=== PATIENT | female | born 1950 | race Caucasian/White ===

== ENCOUNTER 2022-03-24 18:20 | Outpatient (REF) | payer MEDICARE, SELFPAY ==
[2022-03-24 14:41] LABS: Abs Immature Grans 0.13 10^3/uL (0.0-0.06); Absolute Basophil Count 0.07 10^3/uL (0.0-0.2); Absolute Eosinophil Count 0.56 10^3/uL (0.0-0.7); Absolute Lymphocyte Count 0.92 10^3/uL (1.2-3.4); Absolute Monocyte Count 0.85 10^3/uL (0.1-0.8); Absolute Neutrophil Count 6.42 10^3/uL (1.2-6.7); Basophils % 0.8; Eosinophils % 6.3; HCT 31.6 % (36.0-46.0); HGB 9.9 g/dL (11.2-15.7); Immature Grans % 1.5; Lymphocytes % 10.3; MCH 25.1 pg (27.0-33.0); MCHC 31.3 % (32.0-36.0); MCV 80 fL (80-95); MPV 11.4 fL (8.0-11.0); Monocytes % 9.5; Neutrophils % 71.6; Platelet Count 178 10^3/uL (130-400); RBC 3.94 10^6/uL (3.93-5.22); RDW 16.1 % (11.7-14.6); RDW-SD 47.2 fL; WBC 8.95 10^3/uL (4.4-10.8)
[2022-03-24 15:11] LABS: Iron 31 ug/dL (50-170); Total Iron Binding Capacity 249 ug/dL (250-450); Transferrin Sat 12 % (15-50)
[2022-03-24 15:25] LABS: Ferritin 187 ng/mL (8-252)
== END 2022-03-24 18:21 | disposition home or self-care (01) ==
LOC: NCHCN 18:20
PROVIDERS: Visit Provider Nurse Practitioner Family
DX: E78.5 Hyperlipidemia, unspecified (principal); J44.9 Chronic obstructive pulmonary disease, unspecified; D69.6 Thrombocytopenia, unspecified; D64.9 Anemia, unspecified; M81.0 Age-related osteoporosis without current pathological fracture
CPT/HCPCS: 82728; 83540; 83550; 85025

== ENCOUNTER → 2022-05-01 13:42 | Outpatient (CLI) | payer MEDICARE, MEDICAID, SELFPAY ==
--- NOTE | 2022-05-01 | DI.RAD_ITS ---
Exam(s) XR CHEST 2V PA LATERAL EXAM: XR CHEST 2V PA LATERAL CLINICAL HISTORY: COUGH-R05.8. TECHNIQUE: 2D digital imaging was performed. COMPARISON: No exams were available for comparison FINDINGS: 2 views: Mild cardiomegaly. Mediastinum is not widened. Mild increased lung markings but no infiltrates nor pleural effusions. No airspace pulmonary edema. No pneumothorax. IMPRESSION: No acute pulmonary findings.Heart size upper normal-minimally prominent DATA REPOSITORY: RADIATION DOSE DELIVERED:
== END ==
PROVIDERS: Visit Provider Physician Assistant Medical
DX: R05.8 Other specified cough (principal); I51.7 Cardiomegaly; R91.8 Other nonspecific abnormal finding of lung field
CPT/HCPCS: 71046

== ENCOUNTER 2022-05-01 18:19 | Outpatient (REF) | payer MEDICARE, MEDICAID, SELFPAY ==
[2022-05-03 10:56] LABS: COVID-19 RT-PCR UVMMC Result Negative (Negative)
== END 2022-05-01 18:20 | disposition home or self-care (01) ==
LOC: LBN 18:19
PROVIDERS: Visit Provider Physician Assistant Medical
DX: Z20.822 Contact with and (suspected) exposure to COVID-19 (principal); R05.8 Other specified cough
CPT/HCPCS: U0003

== ENCOUNTER 2022-09-03 01:16 | Outpatient (CLI) | payer MEDICARE, MEDICAID, SELFPAY ==
--- NOTE | 2022-09-03 | DI.DEXA_ITS ---
Exam(s) XR DEXA BONE DENSITY W/WO CLIVE EXAM: XR DEXA BONE DENSITY W/WO CLIVE CLINICAL HISTORY: OSTEPOROSIS, M81.0 TECHNIQUE: Routine DEXA evaluation of the lumbar spine, hip, or forearm. COMPARISON: No exams were available for comparison FINDINGS: Performed on a Hologic unit. Lateral image: No compression fracture evident. Lumbar Spine total T-score: 0.9 Hip total T-score:-1.5 Independent reading at the level of the femoral neck yields T-score of -2.4 Forearm total T-score: -0.2 IMPRESSION: Bone mineral density measures in the osteopenia range. Fracture risk is moderate. Note: Any spine fracture indicates 5x risk for subsequent spine fracture and 2x risk for subsequent h ip fracture. World Health Organization criteria for BMD interpretation classify patients: Normal...... T- Score at or above -1.0 Osteopenic... T- Score between -1.0 and -2.5 Osteoporosis... T-Score at or below -2.5
== END 2022-09-03 01:36 ==
LOC: DI 01:17
PROVIDERS: Visit Provider Nurse Practitioner Family
DX: Z13.820 Encounter for screening for osteoporosis (principal); M85.89 Other specified disorders of bone density and structure, multiple sites
CPT/HCPCS: 77080

== ENCOUNTER 2022-10-06 10:16 | Outpatient (REF) | payer MEDICARE, MEDICAID, SELFPAY ==
[2022-10-06 14:40] LABS: Abs Immature Grans 0.06 10^3/uL (0.0-0.06); Absolute Basophil Count 0.08 10^3/uL (0.0-0.2); Absolute Eosinophil Count 0.48 10^3/uL (0.0-0.7); Absolute Lymphocyte Count 0.76 10^3/uL (1.2-3.4); Absolute Monocyte Count 0.75 10^3/uL (0.1-0.8); Absolute Neutrophil Count 7.04 10^3/uL (1.2-6.7); Basophils % 0.9; Eosinophils % 5.2; HCT 32.8 % (36.0-46.0); HGB 10.1 g/dL (11.2-15.7); Immature Grans % 0.7; Lymphocytes % 8.3; MCH 25.2 pg (27.0-33.0); MCHC 30.8 % (32.0-36.0); MCV 82 fL (80-95); MPV 11.1 fL (8.0-11.0); Monocytes % 8.2; Neutrophils % 76.7; Platelet Count 178 10^3/uL (130-400); RBC 4.01 10^6/uL (3.93-5.22); RDW 17.1 % (11.7-14.6); WBC 9.17 10^3/uL (4.4-10.8)
[2022-10-06 15:04] LABS: Iron 32 ug/dL (50-170); Total Iron Binding Capacity 258 ug/dL (250-450); Transferrin Sat 12 % (15-50)
[2022-10-06 15:14] LABS: ALT 32 U/L (14-59); AST 22 U/L (15-37); Albumin 3.1 g/dL (3.4-5.0); Alkaline Phosphatase 99 U/L (46-116); Anion Gap 10.1 mmol/L (3-11); BUN 30 mg/dL (7-18); Bilirubin, Total 0.2 mg/dL (0.2-1.0); CO2 25.9 mmol/L (21.0-32.0); CREATININE 1.1 mg/dL (0.55-1.02); Calcium 9.1 mg/dL (8.5-10.1); Chloride 106 mmol/L (98-107); Estimated GFR 52.73 (mL/min/1.73m2); Ferritin 189 ng/mL (8-252); Glucose 121 mg/dL (74-106); Potassium 4.5 mmol/L (3.5-5.1); Sodium 142 mmol/L (136-145); Total Protein 7.3 g/dL (6.4-8.2)
[2022-10-06 15:26] LABS: Vitamin D 25 Total 70.3 ng/mL (30-100)
== END 2022-10-06 10:17 | disposition home or self-care (01) ==
LOC: NCHCN 10:16
PROVIDERS: PCP Nurse Practitioner Family; Visit Provider Nurse Practitioner Family
DX: D64.9 Anemia, unspecified (principal); F41.8 Other specified anxiety disorders; E78.5 Hyperlipidemia, unspecified; K21.9 Gastro-esophageal reflux disease without esophagitis; R25.1 Tremor, unspecified; M81.0 Age-related osteoporosis without current pathological fracture
CPT/HCPCS: 80053; 82306; 82728; 83540; 83550; 85025

== ENCOUNTER 2022-11-09 01:03 | Outpatient (CLI) | payer MEDICARE, MEDICAID, SELFPAY ==
--- NOTE | 2022-11-09 09:30 | DI.MAMMO_ITS ---
Exam(s) MAMMO SCREENING EXAM: MAMMO SCREENING CLINICAL HISTORY: SCREENING MAMMO FOR BREAST CANCER Z12.31. TECHNIQUE: Bilateral full field digital CC and MLO mammographic images were obtained with 3D tomosyn thesis and utilizing computer aided detection (CAD). COMPARISON: None. Patient is apparently not aware prior mammograms. FINDINGS: There are no concerning spiculated masses nor malignant appearing microcalcification groups. Benign secretory-type calcifications are noted in both breasts. There is no significant architectural distortion nor skin thickening-retraction. IMPRESSION: No radiographic evidence of malignancy. BI-RADS Category 2 - Benign Findings Breast Density - Category A - Almost entirely fatty Breast density Category C or D implies that the patient has dense breast tissue. Dense breast tissue can make it harder to find cancer on a mammogram. Dense breast tissue is also associated with an incr eased risk of breast cancer. This information about the result of the mammogram report was provided to the patient to raise their awareness. Use this report when you speak with the patient about their risks for breast cancer, which includes their family history. At that time, you may recommend additional screening tests (Ultrasoun d or MRI) as these tests may add significant information. A negative radiographic report should not delay biopsy if a dominant or clinically suspicious mass is present. Up to ten percent of cancers are not identified on mammography. A negative report may reinforce clinical impression. Adenosis and dense breasts may obscure an underlying neoplasm. False positive reports average 6 to 10%. Patient will receive a letter notifying them of these results.
== END 2022-11-09 01:23 ==
PROVIDERS: PCP Nurse Practitioner Family; Visit Provider Nurse Practitioner Family
DX: Z12.31 Encounter for screening mammogram for malignant neoplasm of breast (principal)
CPT/HCPCS: 77063; 77067

== ENCOUNTER 2022-11-27 17:14 | Emergency (ER) | payer MEDICARE, MEDICAID, SELFPAY ==
--- NOTE | 2022-11-27 17:15 | DI.RAD_ITS ---
Exam(s) XR KNEE RT 3V AP,LAT,JENNIFER EXAM: XR KNEE RT 3V AP,LAT,JENNIFER CLINICAL HISTORY: fall/trauma. TECHNIQUE: 2D digital imaging was performed. COMPARISON: No exams were available for comparison FINDINGS: 3 views No evidence of acute fracture or obvious joint effusion. No significant degenerative changes. Calci fication noted at the insertion site of the quadriceps tendon on the anterosuperior aspect of the pat masoud. IMPRESSION: No acute osseous findings. Also no joint effusion. DATA REPOSITORY: RADIATION DOSE DELIVERED:
--- NOTE | 2022-11-27 17:15 | DI.CT_ITS ---
Exam(s) CT HEAD CERVICAL SPINE WO EXAM: CT HEAD CERVICAL SPINE WO CLINICAL HISTORY: fall with head injury/neck pain. TECHNIQUE: Imaging Protocol: Axial computed tomography images with coronal and sagittal reformatted images were created and reviewed COMPARISON: No exams were available for comparison FINDINGS: BRAIN: There are no skull fractures. Mucosal thickening and fluid noted in both maxillary sinuses. Similar findings in the sphenoid sinuses and ethmoidal air cells. The frontal sinuses are not developed. M astoid air cells are clear. No fluid evident in the middle ear cavities. There is no evidence of intracranial hemorrhage, mass effect, or shift of midline structures. There are no extra-axial fluid collections. The ventricles are not enlarged or shifted and there is no blo od within the ventricular system nor within the basal cisterns. Mild bilateral periventricular hypodensity consistent with chronic small vessel disease. CERVICAL SPINE: There is no evidence of acute fracture nor listhesis. No significant prevertebral soft tissue swelli ng. There is prominent posterior bony ridging at C3-4 level with severe spinal canal stenosis at this lev el noted. Also cysts canal stenosis lower down in the cervical canal. Chronic degenerative disc disease, most prominent at C6-7 level. Multilevel mild facet degenerative changes. No facet malalignment. There is degenerative cystic change in the odontoid process but no fracture at this level. Calcification in the supraspinous ligament in the mid cervical level noted. IMPRESSION: No acute intracranial findings on this noninfused CT scan of the brain. Multilevel degenerative changes in the cervical spine. Severe spinal canal stenosis most evident at C3-4 level. In trauma setting suspect that this may be associated with possible new abnormal spinal cord injury and if clinically indicated follow-up cervical spine MRI can be performed for added sensi tivity/specificity. No evidence of acute cervical spine fracture, malalignment, nor acute compromise of the cervical spin al canal. RADIATION DOSE DELIVERED: 1,054.34mGy.cm Total DLP DATA REPOSITORY: All CT scans at this facility are submitted to the National Radiology Data Registry (NRDR) Dose Index Registry (DIR) with the [employer] ([employer]). RADIATION OPTIMIZATION: All CT scans at this facility use at least one of these dose optimization te chniques: automated exposure control; mA and/or kV adjustment per patient size (includes targeted exa ms where dose is matched to clinical indication); or iterative reconstruction.
--- NOTE | 2022-11-27 17:15 | DI.RAD_ITS ---
Exam(s) XR WRIST RT COMPLETE EXAM: XR WRIST RT COMPLETE CLINICAL HISTORY: fall/trauma. TECHNIQUE: 2D digital imaging was performed. COMPARISON: No exams were available for comparison FINDINGS: 3 views No evidence of acute fracture nor dislocation. No significant ulnar variance. No significant degene rative changes. No erosions. Scapholunate distance normal. IMPRESSION: No acute osseous findings. DATA REPOSITORY: RADIATION DOSE DELIVERED:
[2022-11-27 17:17] VITALS: BP 166/89; PULSE 103; RESP 22; O2SAT 91
--- NOTE | 2022-11-27 17:18 | ED.GENADUL_ITS ---
Discharge Plan Disposition Patient Disposition: Home Discharge Details Clinical Impression: Fall, Facial contusion, Multiple lung nodules on CT Primary Care Provider: Misti Javier ED Provider: Neil Hernandez Chaseley Meds and New Rx's Prescriptions: No Action atorvastatin 40 mg tablet 40 mg PO DAILY melatonin 10 mg capsule 10 mg PO HS PRN sennosides [Natural Senna Laxative] 8.6 mg tablet 8.6 mg PO QHS trazodone 50 mg tablet 50 mg PO QHS PRN sertraline 100 mg tablet 100 mg PO DAILY sertraline 50 mg tablet 50 mg PO DAILY multivitamin Tablet 1 tab PO DAILY montelukast 10 mg tablet 10 mg PO DAILY ferrous sulfate 325 mg (65 mg iron) tablet 325 mg PO Q OTHER DAY donepezil [Aricept] 10 mg tablet 10 mg PO DAILY docusate sodium 100 mg capsule 200 mg PO QHS cholecalciferol (vitamin D3) 25 mcg (1,000 unit) capsule 25 mcg PO DAILY budesonide-formoterol [Symbicort] 160-4.5 mcg/actuation HFA aerosol inhaler 1 puff inhalation BID albuterol sulfate 90 mcg/actuation HFA aerosol inhaler 2 puff inhalation Q4H PRN Discharge Instructions Instructions: Contusion in Adults (ED) Additional Instructions: Doretha was seen after a fall out of bed as well as a trip and fall in our parking lot. CT scan of the head reveals no bleed or skull fracture. CT of the cervical spine reveals no fracture. She does have significant arthritic change and spondylosis. She is also noted to have right lung nodules multiple in number and is largest 14 mm. This can be evaluated as outpatient by primary care. X-rays of her right wrist, right shoulder, right knee are all negative. She may use Tylenol for pain. Ice over her bruise to help with pain and swelling. Return to ED for any significant neurologic change, persistent vomiting, other concerns. Medical Decision Making Patient presenting from care home after she fell out of bed and struck her head. She has bruise/contusion over her right eye. She is moving her neck without difficulty but complains of pain when posterior spine is palpated. Complains of pain with palpation of the right wrist and movement of the right knee. Will obtain head and cervical spine CT, x-ray wrist and knee. Patient began to complain of shoulder pain on the right as well. X-ray of this was added on. CT head negative. CT cervical spine without fracture but she does have significant spondylosis with canal stenosis and some cord compression at C3-C4 as well as foraminal narrowing. Also noted to have multiple noncalcified nodular parenchymal densities measuring up to 14 mm in size in the right lung apex. Will need follow-up dedicated CT chest if family so inclined to evaluate for possible malignancy. X-ray of the wrist, shoulder, knee are all negative per my read and radiology preliminary read. Patient will be discharged back to her care home with her artisan plasterer. They will need to reach out to family to discuss possible CT chest as outpatient. Patient can follow-up with primary care. May use Tylenol as needed for pain. Ice on and off to her bruise over the right eye. Return precaution provided. HPI General Mode of arrival: wheelchair . Date/Time Provider Initiated Documentation: 11/27/22 17:18 . Information obtained by: patient and family (caregiver from care home) . HPI Narrative: Patient presents to ED from care home status post fall out of bed. She hit her head. Unclear whether there was loss of consciousness or not. She had 1 episode of emesis which concerned staff so she was sent in for evaluation. She was walking into the ED with her walker and a artisan plasterer when she tripped and fell in the parking lot. Did not strike her head then. Is complaining of wrist and knee pain from that fall. She denies having any neck pain, back pain, chest pain, hip pain, shortness of breath. She is noted to have a cough which she states is always present. Related Data Home Medications Medication Instructions Recorded Confirmed albuterol sulfate 90 mcg/actuation 2 puff inhalation Q4H PRN 07/21/22 11/27/22 aerosol inhaler budesonide-formoterol HFA 160 1 puff inhalation BID 07/21/22 11/27/22 mcg-4.5 mcg/actuation aerosol inhaler (Symbicort) cholecalciferol (vitamin D3) 25 25 mcg PO DAILY 07/21/22 mcg (1,000 unit) capsule docusate sodium 100 mg capsule 200 mg PO QHS 07/21/22 donepezil 10 mg tablet (Aricept) 10 mg PO DAILY 07/21/22 ferrous sulfate 325 mg (65 mg 325 mg PO Q OTHER DAY 07/21/22 iron) tablet montelukast 10 mg tablet 10 mg PO DAILY 07/21/22 multivitamin 1 tab PO DAILY 07/21/22 11/27/22 sertraline 100 mg tablet 100 mg PO DAILY 07/21/22 11/27/22 sertraline 50 mg tablet 50 mg PO DAILY 07/21/22 11/27/22 trazodone 50 mg tablet 50 mg PO QHS PRN 07/21/22 11/27/22 atorvastatin 40 mg tablet 40 mg PO DAILY 10/08/22 11/27/22 melatonin 10 mg capsule 10 mg PO HS PRN 10/08/22 11/27/22 sennosides 8.6 mg tablet (Natural 8.6 mg PO QHS 10/08/22 Senna Laxative) Allergies Allergy/AdvReac Type Severity Reaction Status Date / Time cephalexin Allergy Severe Verified 11/27/22 17:54 tetanus toxoid, adsorbed Allergy Severe Verified 11/27/22 17:54 diclofenac Allergy Intermediate Verified 11/27/22 17:54 shellfish derived Allergy Intermediate Verified 11/27/22 17:54 Sulfa (Sulfonamide Allergy Intermediate Verified 11/27/22 17:54 Antibiotics) acetaminophen Allergy Mild Verified 11/27/22 17:54 adhesive tape Allergy Mild Verified 11/27/22 17:54 Review of Systems Narrative: Per HPI PFSH All Active Problems (Updated 11/27/22 @ 19:49 by Neil Hernandez MD) Fall (Acute) Facial contusion (Acute) Multiple lung nodules on CT (Acute) Low back pain (Acute) Knee pain, bilateral (Acute) Thrombocytopenia (Chronic) COPD (chronic obstructive pulmonary disease) (Chronic) GERD (gastroesophageal reflux disease) (Chronic) Osteoporosis (Chronic) Memory deficit (Acute) Tremor (Acute) Anemia (Chronic) Urinary incontinence (Acute) Screening for colon cancer (Acute) Medical History Anxiety Asthma, chronic Hx of pancreatitis Hyperlipidemia Memory loss MSSA bacteremia Sciatica Social History Smoking/Tobacco Use Status: Never Smoking risk assessment performed?: Yes Alcohol Intake: never Substance use type: does not use Do you feel safe at home: Yes Do you feel safe in your relationship?: Yes Additional Social history: pt lives in care home where she is cared for by caregivers., dementia at baseline. Exam Narrative Exam Narrative: Const: WDWN elderly female in NAD. HEENT: NC/AT. Bruising/hematoma right eye without orbital tenderness. Eyes: EOMI Neck: Supple. Trachea midline. Some tenderness to posterior midline. Lungs: Normal respiratory effort. Lungs with upper air way noise. Chest wall nontender Cor: RRR without murmur/gallop. Good radial pulses. GI: Soft. NT/ND. No guarding or rebound. Back: No spine tenderness. Neuro: A+O x 2. Normal speech, mentation. Cranial nerves II - XII grossly intact. No gross motor or sensory deficit. Ext: No C/C/E. Tender to right wrist without deformity. Decrease ROM right knee without deformity. Skin: Warm and dry without laceration.
--- NOTE | 2022-11-27 18:30 | DI.RAD_ITS ---
Exam(s) XR SHOULDER RT COMPLETE 2+V EXAM: XR SHOULDER RT COMPLETE 2+V CLINICAL HISTORY: trauma. TECHNIQUE: 2D digital imaging was performed. COMPARISON: No exams were available for comparison FINDINGS: Four views No evidence of acute fracture or dislocation. There are no soft tissue calcifications in the subacro mial space. However, there is a bony excrescence at the level of the greater tuberosity on the later al aspect of the humeral head. In addition, there is osteophytic ridge on the undersurface of the ac romion. Probably causing an element of impingement. AC joint itself exhibits mild degenerative aguilar ges. Ipsilateral visualized clavicle appears unremarkable. IMPRESSION: As above. DATA REPOSITORY: RADIATION DOSE DELIVERED:
--- NOTE | 2022-11-27 18:39 | DI.VRAD_ITS ---
PROCEDURE INFORMATION: Exam: XR Right Wrist Exam date and time: 11/27/2022 18:29 Age: 72 years old Clinical indication: Injury or trauma; Fall; Blunt trauma (contusions or hematomas); Wrist; Right TECHNIQUE: Imaging protocol: Radiologic exam of the right wrist. Views: 3 or more views. COMPARISON: No relevant prior studies available. FINDINGS: Bones/joints: The bones are demineralized. Scattered [id number] degenerative changes. No acute fracture or subluxation. Soft tissues: Soft tissue swelling dorsally. IMPRESSION: No acute bony pathology. Dictated and Authenticated by: Tracy Emery MD. Ordering:ROOSEVELT Trejo MD
--- NOTE | 2022-11-27 18:44 | DI.VRAD_ITS ---
PROCEDURE INFORMATION: Exam: CT Head Without Contrast Exam date and time: 11/27/2022 6:20 PM Age: 72 years old Clinical indication: Injury or trauma; Blunt trauma (contusions or hematomas); Consciousness not specified; Injury details: Fall/trauma TECHNIQUE: Imaging protocol: Computed tomography of the head without contrast. COMPARISON: No relevant prior studies available. FINDINGS: Brain: Slight prominence of cerebral sulci reflects mild cerebral atrophy. A few poorly marginated hypodensities seen throughout the deep and periventricular white matter of both cerebral hemispheres are consistent with underlying microvascular ischemic changes. Brainstem and cerebellum are unremarkable and there is no evidence of acute transcortical infarction or recent intracranial hemorrhage. Cerebral ventricles: Ventricular and cisternal spaces are normal in size and configuration and there is no midline shift or hydrocephalus. Paranasal sinuses: Bilateral sphenoethmoid and maxillary sinus mucosal disease is noted. Mastoid air cells: Grossly clear bilaterally. Bones/joints: Bony calvarium and skull base are intact and no acute fractures are detected. Soft tissues: Unremarkable. IMPRESSION: Cerebral atrophy and probable microvascular ischemic changes with no evidence of acute transcortical infarction, recent hemorrhage or hydrocephalus. No acute intracranial process is detected. PROCEDURE INFORMATION: Exam: CT Cervical Spine Without Contrast Exam date and time: 11/27/2022 6:20 PM Age: 72 years old Clinical indication: Injury or trauma; Blunt trauma (contusions or hematomas); Consciousness not specified; Injury details: Fall/trauma TECHNIQUE: Imaging protocol: Computed tomography of the cervical spine without contrast. COMPARISON: CR XR CHEST 2V PA LATERAL 05/01/2022 11:58 AM FINDINGS: Bones/joints: There is arthrosis involving the anterior atlantodental interval with loss of joint space and marginal osteophyte formation and the odontoid process is grossly intact. There are grade 1 anterolisthesis of C2 upon C3, C3 upon C4 and C4 upon C5 and there is gross preservation of vertebral body height throughout cervical levels with no vertebral body fractures or other significant subluxations detected. Changes of facet arthropathy are most advanced on the right at C2-C3 with no acute fractures detected involving the posterior elements of the cervical spine. Discs/Spinal canal/Neural foramina: Chronic posterior osteocartilaginous ridging with calcification/ossification is most significant at C3-C4 resulting in canal stenosis and suspected cord compression which could be better evaluated with MRI. Uncovertebral and facet changes produce multilevel foraminal distortions/narrowings. Lungs: No pneumothorax or consolidation detected at the lung apices. Multiple noncalcified nodular parenchymal densities measuring up to 14 mm in size are seen near the right lung apex. Soft tissues: Unremarkable. IMPRESSION: 1. Cervical spondylosis with canal stenosis and cord compression identified at C3-C4 and multilevel foraminal narrowings also evident as above. No acute cervical fractures are detected. 2. Multiple noncalcified nodular parenchymal densities measuring up to 14 mm in size are seen near the right lung apex with both infectious and neoplastic etiologies of concern. Correlation with clinical data requested. Dictated and Authenticated by: Anjel Perez MD. Ordering:ROOSEVELT Trejo MD
--- NOTE | 2022-11-27 18:53 | DI.VRAD_ITS ---
PROCEDURE INFORMATION: Exam: XR Right Knee Exam date and time: 11/27/2022 18:31 Age: 72 years old Clinical indication: Injury or trauma; Fall; Blunt trauma; Knee; Right TECHNIQUE: Imaging protocol: Radiologic exam of the right knee. Views: 3 views. COMPARISON: No relevant prior studies available. FINDINGS: Bones/joints: Minimal chronic degenerative changes for age. No acute fracture or subluxation. Soft tissues: Benign appearing distal quadriceps enthesophyte. No significant joint effusion. IMPRESSION: No acute bony pathology. Dictated and Authenticated by: Tracy Emery MD. Ordering:ROOSEVELT Trejo MD
--- NOTE | 2022-11-27 18:55 | DI.VRAD_ITS ---
PROCEDURE INFORMATION: Exam: XR Right Shoulder Exam date and time: 11/27/2022 18:45 Age: 72 years old Clinical indication: Injury or trauma; Fall; Blunt trauma (contusions or hematomas); Shoulder; Right TECHNIQUE: Imaging protocol: Radiologic exam of the right shoulder. Views: 2 or more views. COMPARISON: CT HEAD CERVICAL SPINE WO 11/27/2022 18:20 FINDINGS: Bones/joints: The bones are demineralized. Chronic degenerative changes in the shoulder are moderate. No acute fracture or subluxation. Soft tissues: Normal. IMPRESSION: No acute bony pathology. Dictated and Authenticated by: Tracy Emery MD. Ordering:ROOSEVELT Trejo MD
[2022-11-27 19:00] VITALS: BP 145/57; PULSE 90; RESP 20; O2SAT 92
[2022-11-27 19:15] VITALS: BP 150/55; PULSE 92; RESP 20; O2SAT 92
[2022-11-27 19:30] VITALS: BP 149/56; PULSE 94; RESP 20; O2SAT 92
[2022-11-27 20:25] VITALS: BP 148/55; PULSE 92; RESP 24; TEMP 36.8; O2SAT 94
== END 2022-11-27 20:27 | disposition home or self-care (01) ==
PROVIDERS: Emergency Provider Emergency Medicine; PCP Nurse Practitioner Family
DX: S00.83XA Contusion of other part of head, initial encounter (principal); W06.XXXA Fall from bed, initial encounter; R91.8 Other nonspecific abnormal finding of lung field
CPT/HCPCS: 73562; 99284; 70450; 72125; 73030; 73110

== ENCOUNTER 2022-11-30 12:51 | Inpatient (IN) | payer MEDICARE, MEDICAID, SELFPAY ==
[2022-11-30] VITALS (14 sets, daily range): BP systolic 94–129; BP diastolic 24–71; PULSE 70–91; RESP 4–28; TEMP 36.3–37; O2SAT 92–100
--- NOTE | 2022-11-30 13:30 | DI.RAD_ITS ---
Exam(s) XR CHEST 2V PA LATERAL EXAM: XR CHEST 2V PA LATERAL CLINICAL HISTORY: Shortness of breath TECHNIQUE: 2D digital imaging was performed. COMPARISON: CR XR CHEST 2V PA LATERAL from 05/01/2022 CR,XR XR SHOULDER RT COMPLETE 2+V from 11/27/2022 FINDINGS: HEART: Normal size. Aorta: Not dilated. PULMONARY VASCULATURE: Normal. LUNGS: Underlying fibrotic changes. Superimposed bilateral patchy infiltrates. PLEURAL SPACE: No pleural effusion or pneumothorax. BONE:Degenerative changes in the spine. No compression fractures. IMPRESSION: Patchy bilateral infiltrates. DATA REPOSITORY: RADIATION DOSE DELIVERED:
--- NOTE | 2022-11-30 13:31 | W.ED.GENAD ---
Discharge Plan Disposition Patient Disposition: Admit to [facility] Discharge Details Clinical Impression: Acute respiratory failure with hypoxia, BETH (acute kidney injury), Community acquired pneumonia Admit Date/Time: 11/30/22 15:47 Admit Provider: Georgina Galindo Attending Provider: Georgina Galindo Primary Care Provider: Misti Javier ED Provider: Shorty Chan Medical Decision Making This is a hypoxic and hypotensive 72-year-old female 3 days status post falling out of bed now with productive cough and worsening shortness of breath complicated by acute respiratory failure requiring 2 L supplemental oxygen for which patient will require hospitalization. Given hypotension and hypoxia I am suspicious for sepsis so we will obtain lactate, 2 sets of blood cultures, and treat empirically with ciprofloxacin given cephalexin allergy and vancomycin. We will obtain chest x-ray. Breath sounds equal so not concern for pneumothorax. Based on mechanism of injury I am not concerned for significant thoracoabdominal trauma so I do not feel the patient requires axial imaging. No significant wheezes but she does carry history of COPD. Will defer nebulization at this point. If patient has infiltrate will consider adding on metronidazole to cover for aspiration pneumonia. Patient does have tenderness to her right shoulder and her right knee however these have been imaged during her next visit and her images were negative. Given no recurrent trauma no indication for repeat imaging. 2:50 PM Venous blood gas lacks hypercarbia & acidemia. Reassuring normal lactate. 3:20 PM Base metabolic panel significant for BETH with mild anion gap and mild hypokalemia. Mildly elevated glucose but not consistent with DKA. Chest x-ray read as patchy infiltrates. Presentation concerning for community-acquired pneumonia. I am not suspicious for rib fractures so will defer CT scan. Negative troponin. CBC notable for marked leukocytosis. No thrombocytopenia. Baseline microcytic anemia appears similar to prior. Given signs of dehydration patient will possibly benefit from transfusion if her hemoglobin downtrends with rehydration. Mildly elevated CK not consistent with rhabdomyolysis. We will swab for respiratory viral panel. 3:30 PM I spoke with Dr. Galindo from the hospitalist team who graciously accepted the patient for hospitalization. She requested add on procalcitonin. I also ordered the patient for aztreonam. Patient confirms full code. Given her normal lactate I feel that her transient hypotension in the ED resulted from her BETH. Her elevated BUN:Creatine is most consistent with a pre-renal etiology of her BETH. This is mostly likely secondary to dehydration given her improved BP following two, 500 cc fluid boluses. Chronic conditions affecting the care of the patient: Lives in SNF History obtained from an outside historian: Patient's care provider at [facility] External record review: N/A Diagnostic interpretations performed by me: [Per my independent interpretation chest x-ray shows:] Infiltrates bilaterally [Per my independent interpretation EKG shows:] N/A Medications: Broad-spectrum antibiotics Social determinants of health affecting disposition: Frailty Management discussed with: Hospitalist Treatment/interventions considered: Discharge however the patient requires supplemental oxygen Response to therapies provided: Improved on supplemental oxygen HPI General Date/Time Provider Initiated Documentation: 11/30/22 13:31. HPI Narrative: This is a 72-year-old female arriving from a [facility] facility in the setting of worsening shortness of breath and a productive cough. Patient fell 3 days ago. Prior to her fall she has had a mild productive cough. This gradually worsened over the weekend following her fall. She is not on supplemental oxygen at baseline but currently requires 2 L of nasal cannula oxygen secondary to a room air oxygen saturation reported by her [facility] facility at 80%. She has not had any fevers. She has not had any vomiting. She has not had any subsequent falls. She had radiographs obtained at her index visit 3 days ago of her right shoulder, right wrist and right knee which were all negative for any acute osseous abnormalities. She has a history of COPD. Related Data Home Medications Medication Instructions Recorded Confirmed albuterol sulfate 90 mcg/actuation 2 puff inhalation Q4H PRN 07/21/22 11/30/22 aerosol inhaler budesonide-formoterol HFA 160 1 puff inhalation BID 07/21/22 11/30/22 mcg-4.5 mcg/actuation aerosol inhaler (Symbicort) cholecalciferol (vitamin D3) 25 25 mcg PO DAILY 07/21/22 11/30/22 mcg (1,000 unit) capsule docusate sodium 100 mg capsule 200 mg PO QHS 07/21/22 11/30/22 donepezil 10 mg tablet (Aricept) 10 mg PO DAILY 07/21/22 11/30/22 ferrous sulfate 325 mg (65 mg 325 mg PO Q OTHER DAY 07/21/22 11/30/22 iron) tablet montelukast 10 mg tablet 10 mg PO DAILY 07/21/22 11/30/22 multivitamin 1 tab PO DAILY 07/21/22 11/30/22 sertraline 100 mg tablet 100 mg PO DAILY 07/21/22 11/30/22 sertraline 50 mg tablet 50 mg PO DAILY 07/21/22 11/30/22 trazodone 50 mg tablet 50 mg PO QHS PRN 07/21/22 11/30/22 atorvastatin 40 mg tablet 40 mg PO DAILY 10/08/22 11/30/22 melatonin 10 mg capsule 10 mg PO HS PRN 10/08/22 11/30/22 sennosides 8.6 mg tablet (Natural 8.6 mg PO QHS 10/08/22 11/30/22 Senna Laxative) Allergies Allergy/AdvReac Type Severity Reaction Status Date / Time cephalexin Allergy Severe Verified 11/27/22 17:54 tetanus toxoid, adsorbed Allergy Severe Verified 11/27/22 17:54 diclofenac Allergy Intermediate Verified 11/27/22 17:54 shellfish derived Allergy Intermediate Verified 11/27/22 17:54 Sulfa (Sulfonamide Allergy Intermediate Verified 11/27/22 17:54 Antibiotics) acetaminophen Allergy Mild Verified 11/27/22 17:54 adhesive tape Allergy Mild Verified 11/27/22 17:54 General Stated Complaint: RespSymp FREDA: 3 PFSH All Active Problems (Updated 11/30/22 @ 17:42 by Zuleyma Bryant NP) Discharge planning issues (Acute) DVT prophylaxis (Acute) Hyperlipidemia (Chronic) Fall (Acute) Facial contusion (Acute) Multiple lung nodules on CT (Acute) Acute respiratory failure with hypoxia (Acute) BETH (acute kidney injury) (Acute) Community acquired pneumonia (Acute) Low back pain (Acute) Knee pain, bilateral (Acute) Thrombocytopenia (Chronic) COPD (chronic obstructive pulmonary disease) (Chronic) GERD (gastroesophageal reflux disease) (Chronic) Osteoporosis (Chronic) Memory deficit (Chronic) Tremor (Acute) Anemia (Chronic) Urinary incontinence (Chronic) Screening for colon cancer (Acute) Medical History Anxiety Asthma, chronic Hx of pancreatitis Hyperlipidemia Memory loss MSSA bacteremia Sciatica Social History Smoking/Tobacco Use Status: Never Smoking risk assessment performed?: Yes Alcohol Intake: never Substance use type: does not use Do you feel safe at home: Yes Do you feel safe in your relationship?: Yes Additional Social history: pt lives in custodial where she is cared for by caregivers., dementia at baseline. Exam Narrative Exam Narrative: General: Chronically ill-appearing in no acute distress speaking in complete sentences. Wearing 2 L nasal cannula with intermittent cough. Head: Normocephalic, atraumatic. Eye: Pupils equal, round reactive to light. Extraocular eye movements intact. No conjunctival injection. No scleral icterus. Ear, nose, mouth, throat: Grossly normal inspection. Normal voice, handling secretions normally. Neck: Trachea midline. Cardiovascular: Well-perfused distal extremities. Regular rate and rhythm Respiratory: Nonlabored respiration. Coarse breath sounds bilaterally. Gastrointestinal: Nondistended abdomen. Soft nontender Musculoskeletal: Right-sided shoulder tenderness. No obvious deformities. No lacerations. Patient is able to touch right hand to contralateral shoulder. Right knee with tenderness. Patient is able to passively range her right knee. Pelvis stable to anterior posterior compression. No left upper nor lower extremity tenderness. Skin: Normal for age and race, grossly normal temperature and turgor. No acute rash. Neurologic: Alert and appropriate, no apparent acute deficits. Psychiatric: Mood and manner are appropriate. Grooming and personal hygiene are appropriate. Course Vital Signs Vital signs: Vital Signs Pulse 86 11/30/22 12:55 Respiratory Rate 18 11/30/22 12:55 Blood Pressure 97/44 L 11/30/22 12:55 Pulse Oximetry 92 11/30/22 12:55 Temperature Source Oral 11/30/22 12:55 Pulse 86 11/30/22 12:55 Respiratory Rate 18 11/30/22 12:55 Respiratory Effort Short of Breath, Incrsd Work of Breathing 11/30/22 13:21 Respiratory Depth Normal 11/30/22 13:21 Blood Pressure 97/44 L 11/30/22 12:55 Blood Pressure Position Sitting 11/30/22 12:55 Pulse Oximetry 92 11/30/22 12:55 Oxygen Delivery Method Room Air 11/30/22 12:55 Oxygen Flow Rate 0 11/30/22 12:55 Critical Care Time Critical Care Time Critical Care Time: Yes Total Critical Care Time: 30 Attestation: in the setting of acute respiratory failure with hypoxia I completed critical care on this patient interpreting her blood gas, CXR and ECG.
[2022-11-30 14:34] LABS: BE (Venous) -5 mmol/L (-2-3); HCO3 (Venous) 20 mmol/L (23-28); O2 Sat (Venous) 65 %; TCO2 (Venous) 19 mmol/L (24-29); pCO2 (Venous) 36 mmHg (41-51); pH (Venous) 7.36 (7.31-7.41); pO2 (Venous) 35 mmHg
[2022-11-30 14:35] LABS: Abs Immature Grans 1.13 10^3/uL (0.0-0.06); Absolute Basophil Count 0.06 10^3/uL (0.0-0.2); Absolute Monocyte Count 1.26 10^3/uL (0.1-0.8); Basophils % 0.3; HCT 29.6 % (36.0-46.0); HGB 9.5 g/dL (11.2-15.7); Immature Grans % 5.7; Lymphocytes % 1.9; MCH 24.8 pg (27.0-33.0); MCHC 32.1 % (32.0-36.0); MCV 77 fL (80-95); MPV 10.4 fL (8.0-11.0); Monocytes % 6.4; Neutrophils % 85.7; Nucleated RBC 0.1 % (0.0-0.3); Platelet Count 142 10^3/uL (130-400); RBC 3.83 10^6/uL (3.93-5.22); RDW-SD 45.3 fL; WBC 19.72 10^3/uL (4.4-10.8)
[2022-11-30 14:36] LABS: Lactate 0.9 mmol/L (0.6-1.4)
[2022-11-30 14:38] LABS: Absolute Lymphocyte Count 0.37 10^3/uL (1.2-3.4)
[2022-11-30 14:54] LABS: Anion Gap 12.6 mmol/L (3-11); BUN 50 mg/dL (7-18); CO2 21.4 mmol/L (21.0-32.0); CREATININE 1.9 mg/dL (0.55-1.02); Calcium 8.9 mg/dL (8.5-10.1); Chloride 104 mmol/L (98-107); Estimated GFR 27.37 (mL/min/1.73m2); Glucose 126 mg/dL (74-106); Potassium 3.4 mmol/L (3.5-5.1); Sodium 138 mmol/L (136-145); Troponin I < 50 ng/L (<or=60)
[2022-11-30 14:59] LABS: Diff Comment Diff Reviewed; RBC Morphology Normal
[2022-11-30 15:08] LABS: Creatine Kinase 222 U/L (26-192)
[2022-11-30] MEDS: CIPROFLOXACIN 400 MG/200 ML BAG 200 MG IVPB (15:17)
[2022-11-30] MEDS: Normal Saline 500 ML IV (15:35)
--- NOTE | 2022-11-30 16:12 | HPE_ITS ---
Date of service: 11/30/22 Time of Service: 16:12 Assessment and Plan Assessment and plan (1) Acute respiratory failure with hypoxia: Status: Acute Assessment and plan: 2 days of increasing shortness of breath and productive cough Emperic abx, Vancomycin, Levofloxacin BC x 2, Sputum, urine legionella/strep, Mycoplasma, MRSA, all pending IS Acapella (2) BETH (acute kidney injury): Status: Acute Assessment and plan: BUN 50 Creatinine 1.9; slighlty up from baseline (3) Community acquired pneumonia: Status: Acute Assessment and plan: 2 day hx of cough, CXR shows bilateral patchy infiltrates Emperic abx, Vancomycin, Levofloxacin BC x 2, Sputum, urine legionella/strep, Mycoplasma, MRSA, all pending (4) COPD (chronic obstructive pulmonary disease): Status: Chronic Assessment and plan: CXR: HEART: Normal size.? Aorta: Not dilated. PULMONARY VASCULATURE: Normal. LUNGS: Underlying fibrotic changes.? Superimposed bilateral patchy infiltrates. PLEURAL SPACE: No pleural effusion or pneumothorax. BONE:Degenerative changes in the spine.? No compression fractures. Albuterol Duo neb Continue Budesonide/Formoterol Fumarate Prednisone 40 mg daily (5) Memory deficit: Status: Chronic Assessment and plan: Continue Donepezil (6) Anemia: Status: Chronic Assessment and plan: Chronic anemia, H&H ~ baseline 9.5/29.6 will monitor, consider hemodilution after IVF in ED and IV abx (7) Urinary incontinence: Status: Chronic Assessment and plan: Frequent monitoring for wet brief, good hygiene, frequent position changes; consider indwelling catheter if skin becomes a concern (8) Hyperlipidemia: Status: Chronic Assessment and plan: Continue Atorvastatin (9) DVT prophylaxis: Status: Acute Assessment and plan: Enoxaparin (10) Discharge planning issues: Status: Acute Assessment and plan: [facility] History of Present Illness History of Present Illness Chief Complaint: Shortness of breath with productive cough Narrative: This is a 72-year-old female arriving to the [facility] ED [facility], with a past medical history of Dementia, multiple lung nodules, thrombocytopenia, COPD, GERD, osteoporosis, anemia and urinary incontinence (history obtained by patient's care provider) in the setting of worsening shortness of breath and a productive cough.? Patient had fallen 3 days ago.? Prior to her fall she has had a mild productive cough.? This is worsened over the weekend.? She is not on supplemental oxygen at baseline but currently requir es 2 L of nasal cannula oxygen secondary to a room air oxygen saturation reported by her [facility] facility at 80%.? She has not had any fevers.? She has not had any vomiting.? She has not had any subsequent falls.? She had radiographs obtained at her index visit on November 27 of her right shoulder wrist and knee which were all negative for any acute osseous abnormalities. In the ED she was hypoxic and hypotensive with a productive cough Lactate, 2 sets of blood cultures, BMP, CBC and procalcitonin were done. Base metabolic panel significant for BETH with mild anion gap and mild hypokalemia.? Mildly elevated glucose but not consistent with DKA.? Chest x-ray read as patchy infiltrates.? Presentation concerning for community-acquired pneumonia.? I am not suspicious for rib fractures so will defer CT scan.? Negative troponin.? CBC notable for marked leukocytosis.? No thrombocytopenia.? Baseline microcytic anemia appears similar to prior.? Given signs of dehydration patient will possibly benefit from transfusion if her hemoglobin downtrends with rehydration.? Mildly elevated CK not consistent with rhabdomyolysis.? Procalcitonin 1.9. Respiratory viral panel negative. She received emperic Vancomycin, Aztreonam. and Cipro; she is allergic to cephalexin. ?Base metabolic panel significant for BETH with mild anion gap and mild hypokalemia.? Mildly elevated glucose but not consistent with DKA.? Chest x-ray read as patchy infiltrates.? Presentation concerning for community-acquired pneumonia.? Negative troponin.? CBC notable for marked leukocytosis.? No thrombocytopenia.? Baseline microcytic anemia appears similar to prior.? Mildly elevated CK not consistent with rhabdomyolysis.?She is being admitted to the medical floor for continued oxygen, IV antibiotics and evaluation. Review of Systems All systems reviewed & are unremarkable except as noted in HPI and below PFSH All Active Problems (Updated 11/30/22 @ 17:42 by Zuleyma Bryant NP) Discharge planning issues (Acute) DVT prophylaxis (Acute) Hyperlipidemia (Chronic) Fall (Acute) Facial contusion (Acute) Multiple lung nodules on CT (Acute) Acute respiratory failure with hypoxia (Acute) BETH (acute kidney injury) (Acute) Community acquired pneumonia (Acute) Low back pain (Acute) Knee pain, bilateral (Acute) Thrombocytopenia (Chronic) COPD (chronic obstructive pulmonary disease) (Chronic) GERD (gastroesophageal reflux disease) (Chronic) Osteoporosis (Chronic) Memory deficit (Chronic) Tremor (Acute) Anemia (Chronic) Urinary incontinence (Chronic) Screening for colon cancer (Acute) Medical History Anxiety Asthma, chronic Hx of pancreatitis Hyperlipidemia Memory loss MSSA bacteremia Sciatica Social History Smoking/Tobacco Use Status: Never Smoking risk assessment performed?: Yes Alcohol Intake: never Substance use type: does not use Do you feel safe at home: Yes Do you feel safe in your relationship?: Yes Additional Social history: [facility] where she is cared for by caregivers., dementia at baseline. Meds Allergies and Home Medications Allergies Allergy/AdvReac Type Severity Reaction Status Date / Time cephalexin Allergy Severe Verified 11/27/22 17:54 tetanus toxoid, adsorbed Allergy Severe Verified 11/27/22 17:54 diclofenac Allergy Intermediate Verified 11/27/22 17:54 shellfish derived Allergy Intermediate Verified 11/27/22 17:54 Sulfa (Sulfonamide Allergy Intermediate Verified 11/27/22 17:54 Antibiotics) acetaminophen Allergy Mild Verified 11/27/22 17:54 adhesive tape Allergy Mild Verified 11/27/22 17:54 Home Medications Medication Instructions Recorded Confirmed Type albuterol sulfate 90 mcg/actuation 2 puff inhalation Q4H PRN 07/21/22 11/30/22 History aerosol inhaler budesonide-formoterol HFA 160 1 puff inhalation BID 07/21/22 11/30/22 History mcg-4.5 mcg/actuation aerosol inhaler (Symbicort) cholecalciferol (vitamin D3) 25 25 mcg PO DAILY 07/21/22 11/30/22 History mcg (1,000 unit) capsule docusate sodium 100 mg capsule 200 mg PO QHS 07/21/22 11/30/22 History donepezil 10 mg tablet (Aricept) 10 mg PO DAILY 07/21/22 11/30/22 History ferrous sulfate 325 mg (65 mg 325 mg PO Q OTHER DAY 07/21/22 11/30/22 History iron) tablet montelukast 10 mg tablet 10 mg PO DAILY 07/21/22 11/30/22 History multivitamin 1 tab PO DAILY 07/21/22 11/30/22 History sertraline 100 mg tablet 100 mg PO DAILY 07/21/22 11/30/22 History sertraline 50 mg tablet 50 mg PO DAILY 07/21/22 11/30/22 History trazodone 50 mg tablet 50 mg PO QHS PRN 07/21/22 11/30/22 History atorvastatin 40 mg tablet 40 mg PO DAILY 10/08/22 11/30/22 History melatonin 10 mg capsule 10 mg PO HS PRN 10/08/22 11/30/22 History sennosides 8.6 mg tablet (Natural 8.6 mg PO QHS 10/08/22 11/30/22 History Senna Laxative) Exam Narrative Exam Narrative: General: Chronically ill-appearing in no acute distress speaking in complete sentences. Wearing 2 L nasal cannula with intermittent junky cough. Head: Normocephalic, atraumatic. Eye: Pupils equal, round reactive to light. Extraocular eye movements intact. No conjunctival injection. No scleral icterus. Ear, nose, mouth, throat: Grossly normal inspection. Normal voice, handling secretions normally. Neck: Trachea midline. Cardiovascular: Well-perfused distal extremities. Regular rate and rhythm Respiratory: Nonlabored respiration. Coarse breath sounds bilaterally. Gastrointestinal: Nondistended abdomen. Soft nontender Musculoskeletal: Right-sided shoulder tenderness. No obvious deformities. No lacerations. Right knee with tenderness. Patient is able to passively range her right knee. Pelvis stable to anterior posterior compression. No left upper nor lower extremity tenderness. Skin: Normal for age and race, grossly normal temperature and turgor. No acute rash. Neurologic: Alert and appropriate, no apparent acute deficits. Psychiatric: Mood and manner are appropriate. Grooming and personal hygiene are appropriate. Results Labs 11/30/22 14:29 11/30/22 14:29 Labs: Laboratory Results - last 24 hr 11/30/22 11/30/22 11/30/22 14:29 14:29 14:29 WBC 19.72 H RBC 3.83 L Hgb 9.5 L Hct 29.6 L MCV 77 L MCH 24.8 L MCHC 32.1 RDW 16.0 H Plt Count 142 MPV 10.4 Immature Gran % 5.7 Neutrophils % 85.7 Lymphocytes % 1.9 Monocytes % 6.4 Eosinophils % 0.0 Basophils % 0.3 Nucleated RBC % 0.1 Absolute Neutrophils 16.90 H Absolute Lymphocytes 0.37 L Absolute Monocytes 1.26 H Absolute Eosinophils 0.00 Absolute Basophils 0.06 RBC Morphology Normal VBG pH VBG pCO2 VBG pO2 VBG HCO3 VBG Total CO2 VBG O2 Saturation VBG Base Excess VBG Lactate 0.9 Sodium 138 Potassium 3.4 L Chloride 104 Carbon Dioxide 21.4 Anion Gap 12.6 H BUN 50 H Creatinine 1.9 H Est GFR (CKD-EPI 2020) 27.37 Glucose 126 H Calcium 8.9 Creatine Kinase 222 H Troponin I < 50 11/30/22 14:29 WBC RBC Hgb Hct MCV MCH MCHC RDW Plt Count MPV Immature Gran % Neutrophils % Lymphocytes % Monocytes % Eosinophils % Basophils % Nucleated RBC % Absolute Neutrophils Absolute Lymphocytes Absolute Monocytes Absolute Eosinophils Absolute Basophils RBC Morphology VBG pH 7.36 VBG pCO2 36 L VBG pO2 35 VBG HCO3 20 L VBG Total CO2 19 L VBG O2 Saturation 65 VBG Base Excess -5 L VBG Lactate Sodium Potassium Chloride Carbon Dioxide Anion Gap BUN Creatinine Est GFR (CKD-EPI 2020) Glucose Calcium Creatine Kinase Troponin I Last Vital Signs Temp 37.0 C 11/30/22 12:55 Pulse 91 H 11/30/22 15:46 Resp 18 11/30/22 12:55 BP 94/24 L 11/30/22 15:46 Pulse Ox 95 11/30/22 15:30 Time Spent Time spent with Patient: 40-54 minutes Time was spent: preparing to see the patient(eg.review tests), obtaining and/or reviewing separately otained hiistory, ordering medications,tests, procedures, referring, communicating with other health caregivers homecare, indepentently interpreting results, counseling the patient and care coordination
[2022-11-30 16:13] LABS: COVID-19 PCR Negative (Negative); Influenza A PCR Negative (Negative); Influenza B PCR Negative (Negative); RSV PCR Negative (Negative)
[2022-11-30 16:18] LABS: Source Nasopharynx
[2022-11-30 16:20] LABS: Procalcitonin 1.9 ng/mL
[2022-11-30] MEDS: Albuterol/Ipratropium 3 ML UPD VIAL UPD (18:30)
[2022-11-30] MEDS: Enoxaparin 40 MG/0.4 ML SYR SC (18:56)
[2022-11-30] MEDS: predniSONE 20 MG TAB 40 MG PO (18:56)
[2022-11-30] MEDS: Benzonatate 200 MG CAP PO (20:06)
[2022-11-30] MEDS: guaiFENesin 600 MG TABCR PO (20:06)
[2022-11-30] MEDS: Budesonide/Formoterol 160/4.5 6 GM 60 PUFF INH IH (20:06)
[2022-11-30] MEDS: POTASSIUM CHLORIDE 20 MEQ/100 ML BAG 50 MEQ IVPB ×2 (20:07→22:08)
[2022-11-30] MEDS: Docusate Sodium 100 MG CAP 200 MG PO (22:14)
[2022-11-30] MEDS: Senna TAB 1 TAB PO (22:14)
[2022-12-01] VITALS (14 sets, daily range): BP systolic 107–174; BP diastolic 51–80; PULSE 77–114; RESP 4–278; TEMP 36.2–37.2; O2SAT 93–98
[2022-12-01] MEDS: AZTREONAM 2,000 MG in Normal Saline 100 ML 200 MG IVPB
[2022-12-01] MEDS: Albuterol/Ipratropium 3 ML UPD VIAL UPD ×4 (00:14→18:14)
[2022-12-01] MEDS: levoFLOXacin 750 MG/150 ML BAG 100 MG IVPB (03:30)
[2022-12-01 07:09] LABS: HCT 25.8 % (36.0-46.0); HGB 8.4 g/dL (11.2-15.7); MCH 25.5 pg (27.0-33.0); MCHC 32.6 % (32.0-36.0); MCV 78 fL (80-95); MPV 11.9 fL (8.0-11.0); Nucleated RBC 0.1 % (0.0-0.3); Platelet Count 143 10^3/uL (130-400); RDW 15.9 % (11.7-14.6); RDW-SD 45.8 fL; WBC 15.96 10^3/uL (4.4-10.8)
[2022-12-01] MEDS: Multivitamin TAB 1 TAB PO (07:39)
[2022-12-01] MEDS: Cholecalciferol (Vitamin D3) 1,000 UNIT TAB 1000 UNITS PO (07:39)
[2022-12-01] MEDS: Montelukast 10 MG TAB PO (07:39)
[2022-12-01] MEDS: predniSONE 20 MG TAB 40 MG PO (07:39)
[2022-12-01] MEDS: Benzonatate 200 MG CAP PO ×3 (07:39→20:46)
[2022-12-01] MEDS: Sertraline 50 MG TAB PO (07:39)
[2022-12-01] MEDS: Atorvastatin 40 MG TAB PO (07:39)
[2022-12-01] MEDS: Ferrous Sulfate 325 MG TAB PO (07:39)
[2022-12-01] MEDS: guaiFENesin 600 MG TABCR PO ×2 (07:39→20:46)
[2022-12-01] MEDS: Donepezil 5 MG TAB 10 MG PO (07:39)
[2022-12-01] MEDS: Sertraline 100 MG TAB PO (07:40)
[2022-12-01 07:42] LABS: Absolute Lymphocyte Count 0.48 10^3/uL (1.2-3.4); Absolute Monocyte Count 0.16 10^3/uL (0.1-0.8); Absolute Neutrophil Count 15.32 10^3/uL (1.2-6.7); Burr Cells (echinocyte) 2+
[2022-12-01 07:43] LABS: Diff Comment Manual Differential
[2022-12-01 07:55] LABS: ALT 30 U/L (14-59); AST 40 U/L (15-37); Albumin 2.1 g/dL (3.4-5.0); Alkaline Phosphatase 116 U/L (46-116); Anion Gap 13.3 mmol/L (3-11); BUN 42 mg/dL (7-18); Bilirubin, Total 0.3 mg/dL (0.2-1.0); CO2 16.7 mmol/L (21.0-32.0); CREATININE 1.3 mg/dL (0.55-1.02); Calcium 8.6 mg/dL (8.5-10.1); Chloride 109 mmol/L (98-107); Estimated GFR 43.15 (mL/min/1.73m2); Glucose 143 mg/dL (74-106); Potassium 3.8 mmol/L (3.5-5.1); Sodium 139 mmol/L (136-145); Total Protein 7.4 g/dL (6.4-8.2)
[2022-12-01] MEDS: Budesonide/Formoterol 160/4.5 6 GM 60 PUFF INH IH ×2 (08:30→22:39)
--- NOTE | 2022-12-01 09:40 | INITIAL_ITS ---
Date of service: 12/01/22 Time of Service: 09:40 Care Management Initial Assmt Initial Assessment REASON FOR HOSPITALIZATION:: Pneumonia, hypoxia PAST MEDICAL HISTORY/PAST SURGICAL HISTORY:: All Active Problems Discharge planning issues (Acute) DVT prophylaxis (Acute) Hyperlipidemia (Chronic) Fall (Acute) Facial contusion (Acute) Multiple lung nodules on CT (Acute) Acute respiratory failure with hypoxia (Acute) BETH (acute kidney injury) (Acute) Community acquired pneumonia (Acute) Low back pain (Acute) Knee pain, bilateral (Acute) Thrombocytopenia (Chronic) COPD (chronic obstructive pulmonary disease) (Chronic) GERD (gastroesophageal reflux disease) (Chronic) Osteoporosis (Chronic) Memory deficit (Chronic) Tremor (Acute) Anemia (Chronic) Urinary incontinence (Chronic) Screening for colon cancer (Acute) Medical History Anxiety Asthma, chronic Hx of pancreatitis Hyperlipidemia Memory loss MSSA bacteremia Sciatica PREVIOUS FUNCTIONAL STATUS/SOCIAL/FAMILY SUPPORTS:: Doretha lives at the [facility] in [place], where she receives supportive care. She has a Guardian from the [facility], Paula Royal (guardian paperwork on file). She has dementia and requires support for her ADL's. CURRENT FUNCTIONAL STATUS:: CM met with Anusha and Rose from [facility] this morning, and spoke to Paula (Guardian) over the phone regarding Doretha's plan of care. Per provider, she remains on IV abx and is on 2LO2. She is not on O2 at baseline; this will be weaned as tolerated. Per Anusha, she is more confused at the hospital than she is at baseline. She will likely be weaned off supplemental O2 and will transition to oral antibiotics prior to discharge, later this week. Anusha stated that she will need some advanced notice of her discharge. CM advised that per provider, she may be ready for discharge in 48-72 hours (Thur/Fri of this week), depending on her progress and improvement. CM will continue to follow. ADVANCE DIRECTIVES:: Not on file. CM will discuss with her caregivers and guardian, possible palliative consultation. CODE STATUS:: Full Code INSURANCE COVERAGE / FINANCIAL ISSUES:: [facility] CURRENT HOME/COMMUNITY SERVICES/EQUIPMENT:: Doretha lives at [facility], a [facility] where she receives assistance with her ADLs. PRIMARY CARE PHYSICIAN:: Misti Javier POTENTIAL DISCHARGE NEEDS:: Evaluations for further needs, follow up appointments, coordinated return to [facility]. PATIENT/FAMILY EDUCATION NEEDS:: Review discharge instructions and limitations, discussion of self care needs including ask me three. ANTICIPATED BARRIERS TO DISCHARGE:: No supplemental O2 at home, requiring O2 currently TRANSPORTATION:: Via private vehicle by [facility] staff PLAN:: Anticipate Doretha will return to [facility] once medically cleared. She will likely be transported via private vehicle by [facility] staff. She will follow up with her PCP and discharge plan of care. CM will continue to follow. PFSH All Active Problems (Updated 11/30/22 @ 17:42 by Zuleyma Bryant NP) Discharge planning issues (Acute) DVT prophylaxis (Acute) Hyperlipidemia (Chronic) Fall (Acute) Facial contusion (Acute) Multiple lung nodules on CT (Acute) Acute respiratory failure with hypoxia (Acute) BETH (acute kidney injury) (Acute) Community acquired pneumonia (Acute) Low back pain (Acute) Knee pain, bilateral (Acute) Thrombocytopenia (Chronic) COPD (chronic obstructive pulmonary disease) (Chronic) GERD (gastroesophageal reflux disease) (Chronic) Osteoporosis (Chronic) Memory deficit (Chronic) Tremor (Acute) Anemia (Chronic) Urinary incontinence (Chronic) Screening for colon cancer (Acute) Medical History Anxiety Asthma, chronic Hx of pancreatitis Hyperlipidemia Memory loss MSSA bacteremia Sciatica Social History Smoking/Tobacco Use Status: Never Smoking risk assessment performed?: Yes Alcohol Intake: never Substance use type: does not use Do you feel safe at home: Yes Do you feel safe in your relationship?: Yes Additional Social history: pt lives in [facility] where she is cared for by caregivers., dementia at baseline. Readmission Within the Past 30 Days Yes or No: No
[2022-12-01] MEDS: VANCOMYCIN/WATER (PEG) 1.25 GM/250 ML BAG IV (10:49)
[2022-12-01] MEDS: Pantoprazole 40 MG VIAL IVP (12:22)
--- NOTE | 2022-12-01 14:01 | PGE_ITS ---
Date of Service Date of service: 12/01/22 Time of Service: 14:01 Assessment and Plan Assessment and plan (1) Community acquired pneumonia: Status: Acute Assessment and plan: Emperic abx, Vancomycin, Levofloxacin day 2 BC x 2, Sputum, urine legionella/strep, Mycoplasma, MRSA, all pending continue to wean oxygen (2) Acute respiratory failure with hypoxia: Status: Resolved Assessment and plan: Empiric abx, Vancomycin, Levofloxacin day 2 BC x 2, Sputum, urine legionella/strep, Mycoplasma, MRSA, all pending IS Acapella (3) BETH (acute kidney injury): Status: Acute (4) COPD (chronic obstructive pulmonary disease): Status: Chronic Assessment and plan: CXR: HEART: Normal size.? Aorta: Not dilated. PULMONARY VASCULATURE: Normal. LUNGS: Underlying fibrotic changes.? Superimposed bilateral patchy infiltrates. PLEURAL SPACE: No pleural effusion or pneumothorax. BONE:Degenerative changes in the spine.? No compression fractures. Albuterol Duo neb Continue Budesonide/Formoterol Fumarate Prednisone 40 mg daily (5) Memory deficit: Status: Chronic Assessment and plan: Continue Donepezil (6) Anemia: Status: Chronic Assessment and plan: Chronic anemia, H&H ~ baseline 9.5/29.6 will monitor, consider hemodilution after IVF in ED and IV abx (7) Urinary incontinence: Status: Chronic Assessment and plan: Frequent monitoring for wet brief, good hygiene, frequent position changes; consider indwelling catheter if skin becomes a concern (8) Hyperlipidemia: Status: Chronic Assessment and plan: Continue Atorvastatin (9) DVT prophylaxis: Status: Acute Assessment and plan: Enoxaparin (10) Discharge planning issues: Status: Acute Assessment and plan: Return to senior living when stable discussed with DR Galindo Subjective Subjective Patient reports: no new complaints Interval history since last seen: moist cough pleasantly demented Exam Const General: cooperative Nutritional Appearance: average body habitus Orientation: alert, awake and confused [facility] Head: normal to inspection, normocephalic and atraumatic Objective Last Vital Signs Temp 37 C 12/01/22 11:38 Pulse 80 12/01/22 11:38 Resp 20 12/01/22 11:38 BP 133/80 12/01/22 11:38 Pulse Ox 95 12/01/22 12:26 Laboratory Results - last 24 hr 0511/30/22 11/30/22 14:29 14:29 14:29 WBC 19.72 H RBC 3.83 L Hgb 9.5 L Hct 29.6 L MCV 77 L MCH 24.8 L MCHC 32.1 RDW 16.0 H Plt Count 142 MPV 10.4 Immature Gran % 5.7 Neutrophils % 85.7 Lymphocytes % 1.9 Monocytes % 6.4 Eosinophils % 0.0 Basophils % 0.3 Nucleated RBC % 0.1 Absolute Neutrophils 16.90 H Absolute Lymphocytes 0.37 L Absolute Monocytes 1.26 H Absolute Eosinophils 0.00 Absolute Basophils 0.06 RBC Morphology Normal Jachin Cells/Echinocytes VBG pH VBG pCO2 VBG pO2 VBG HCO3 VBG Total CO2 VBG O2 Saturation VBG Base Excess VBG Lactate 0.9 Sodium 138 Potassium 3.4 L Chloride 104 Carbon Dioxide 21.4 Anion Gap 12.6 H BUN 50 H Creatinine 1.9 H Est GFR (CKD-EPI 2020) 27.37 Glucose 126 H Calcium 8.9 Magnesium Total Bilirubin AST ALT Alkaline Phosphatase Creatine Kinase 222 H Troponin I < 50 Total Protein Albumin Procalcitonin COVID-19 Source SARS-CoV-2 (PCR) Influenza Type A (PCR) Influenza Type B (PCR) RSV (PCR) 11/30/22 11/30/22 11/30/22 14:29 14:29 15:29 WBC RBC Hgb Hct MCV MCH MCHC RDW Plt Count MPV Immature Gran % Neutrophils % Lymphocytes % Monocytes % Eosinophils % Basophils % Nucleated RBC % Absolute Neutrophils Absolute Lymphocytes Absolute Monocytes Absolute Eosinophils Absolute Basophils RBC Morphology Jachin Cells/Echinocytes VBG pH 7.36 VBG pCO2 36 L VBG pO2 35 VBG HCO3 20 L VBG Total CO2 19 L VBG O2 Saturation 65 VBG Base Excess -5 L VBG Lactate Sodium Potassium Chloride Carbon Dioxide Anion Gap BUN Creatinine Est GFR (CKD-EPI 2020) Glucose Calcium Magnesium Total Bilirubin AST ALT Alkaline Phosphatase Creatine Kinase Troponin I Total Protein Albumin Procalcitonin 1.9 COVID-19 Source Nasopharynx SARS-CoV-2 (PCR) Negative Influenza Type A (PCR) Negative Influenza Type B (PCR) Negative RSV (PCR) Negative 12/01/22 12/01/22 06:20 06:20 WBC 15.96 H RBC 3.30 L Hgb 8.4 L Hct 25.8 L MCV 78 L MCH 25.5 L MCHC 32.6 RDW 15.9 H Plt Count 143 MPV 11.9 H Immature Gran % 0.0 Neutrophils % 96.0 Lymphocytes % 3.0 Monocytes % 1.0 Eosinophils % 0.0 Basophils % 0.0 Nucleated RBC % 0.1 Absolute Neutrophils 15.32 H Absolute Lymphocytes 0.48 L Absolute Monocytes 0.16 Absolute Eosinophils 0.00 Absolute Basophils 0.00 RBC Morphology See Below Amy Cells/Echinocytes 2+ VBG pH VBG pCO2 VBG pO2 VBG HCO3 VBG Total CO2 VBG O2 Saturation VBG Base Excess VBG Lactate Sodium 139 Potassium 3.8 Chloride 109 H Carbon Dioxide 16.7 L Anion Gap 13.3 H BUN 42 H Creatinine 1.3 H Est GFR (CKD-EPI 2020) 43.15 Glucose 143 H Calcium 8.6 Magnesium 2.0 Total Bilirubin 0.3 AST 40 H ALT 30 Alkaline Phosphatase 116 Creatine Kinase Troponin I Total Protein 7.4 Albumin 2.1 L Procalcitonin COVID-19 Source SARS-CoV-2 (PCR) Influenza Type A (PCR) Influenza Type B (PCR) RSV (PCR) Time Spent with Patient Time Spent with Patient: 35-49 minutes Time was spent: preparing to see the patient(eg.review tests), obtaining and/or reviewing separately otained hiistory, ordering medications,tests, procedures and indepentently interpreting results
[2022-12-01] MEDS: Enoxaparin 40 MG/0.4 ML SYR SC (17:11)
--- NOTE | 2022-12-01 17:44 | CHAPLAIN ---
Doretha was sitting up in the chair getting ready to eat dinner when I visited. I helped her get her situated with the table and tray to eat. She was very shaky and had soup to eat. She also had a sandwich. Doretha was pleasant, and responded to questions but seemed a bit confused. She told me about the photo on her table of her . According to the ED notes she lives in a nursing facility. I don't know if her shakiness is part of her baseline. I will continue to visit.
[2022-12-01] MEDS: Docusate Sodium 100 MG CAP 200 MG PO (22:38)
[2022-12-01] MEDS: Senna TAB 1 TAB PO (22:39)
[2022-12-01 22:59] LABS: Legionella Ag Detection Urine Negative (Negative)
[2022-12-02 00:42] VITALS: RESP 2; RESP 24; RESP 4; RESP 7; O2SAT 94
[2022-12-02] MEDS: Albuterol/Ipratropium 3 ML UPD VIAL UPD ×2 (00:42→05:08)
[2022-12-02 04:08] VITALS: BP 155/70; PULSE 92; RESP 20; TEMP 36.1; O2SAT 94
[2022-12-02 05:08] VITALS: RESP 2; RESP 4
[2022-12-02 07:10] VITALS: BP 132/65; PULSE 98; RESP 18; TEMP 37.1; O2SAT 94
[2022-12-02 07:28] LABS: Abs Immature Grans 1.33 10^3/uL (0.0-0.06); Absolute Basophil Count 0.08 10^3/uL (0.0-0.2); Absolute Lymphocyte Count 1.15 10^3/uL (1.2-3.4); Absolute Monocyte Count 1.76 10^3/uL (0.1-0.8); Basophils % 0.4; Eosinophils % 0.1; HCT 26.8 % (36.0-46.0); HGB 8.8 g/dL (11.2-15.7); Immature Grans % 6.8; Lymphocytes % 5.9; MCH 25.2 pg (27.0-33.0); MCHC 32.8 % (32.0-36.0); MCV 77 fL (80-95); MPV 11.4 fL (8.0-11.0); Neutrophils % 77.8; Nucleated RBC 0.1 % (0.0-0.3); RBC 3.49 10^6/uL (3.93-5.22); RDW 16.5 % (11.7-14.6); WBC 19.57 10^3/uL (4.4-10.8)
[2022-12-02 07:29] LABS: Absolute Eosinophil Count 0.02 10^3/uL (0.0-0.7); Absolute Neutrophil Count 15.23 10^3/uL (1.2-6.7)
[2022-12-02 07:48] LABS: Diff Comment Agrees w/ Instrument; Hypochromasia 2+; Platelet Count 194 10^3/uL (130-400)
[2022-12-02 07:49] LABS: Polychromasia Present
[2022-12-02 08:04] LABS: Anion Gap 14.9 mmol/L (3-11); BUN 39 mg/dL (7-18); C-Reactive Protein 13.45 mg/dL (0.0-0.3); CO2 16.1 mmol/L (21.0-32.0); CREATININE 1.3 mg/dL (0.55-1.02); Calcium 9.3 mg/dL (8.5-10.1); Chloride 110 mmol/L (98-107); Estimated GFR 43.15 (mL/min/1.73m2); Glucose 88 mg/dL (74-106); Potassium 3.3 mmol/L (3.5-5.1); Sodium 141 mmol/L (136-145)
[2022-12-02] MEDS: Budesonide/Formoterol 160/4.5 6 GM 60 PUFF INH IH (08:09)
[2022-12-02 08:14] LABS: Procalcitonin 0.5 ng/mL
[2022-12-02] MEDS: predniSONE 20 MG TAB 40 MG PO (09:54)
[2022-12-02] MEDS: Benzonatate 200 MG CAP PO ×3 (09:55→21:36)
[2022-12-02] MEDS: Donepezil 5 MG TAB 10 MG PO (09:55)
[2022-12-02] MEDS: Multivitamin TAB 1 TAB PO (09:55)
[2022-12-02] MEDS: Cholecalciferol (Vitamin D3) 1,000 UNIT TAB 1000 UNITS PO (09:55)
[2022-12-02] MEDS: guaiFENesin 600 MG TABCR PO ×2 (09:55→21:36)
[2022-12-02] MEDS: Sertraline 50 MG TAB PO (09:55)
[2022-12-02] MEDS: Atorvastatin 40 MG TAB PO (09:56)
[2022-12-02] MEDS: Sertraline 100 MG TAB PO (09:57)
[2022-12-02] MEDS: Montelukast 10 MG TAB PO (09:57)
[2022-12-02] MEDS: Pantoprazole 40 MG VIAL IVP (10:09)
[2022-12-02] MEDS: VANCOMYCIN/WATER (PEG) 1 GM/200 ML BAG IV (10:24)
--- NOTE | 2022-12-02 10:31 | CMPROGNOTE_ITS ---
Date of service: 12/02/22 Time of Service: 10:31 Care Management Progress Note Progress Note Text Progress Note Text: S/O: Doretha was sitting up in her chair when CM met with her. She was confused, which is consistent with her diagnosis of dementia at baseline, although staff from the custodial where she resides feel that she is more confused than her baseline. CM provided education to staff at [facility] and her Guardian that it is typical for dementia patients to be more confused at the hospital, because it is not the environment they are used to. [facility] is sending their RN to meet with Doretha tomorrow to determine if they are comfortable with her discharging back to their facility. Per provider, she will likely be ready for discharge tomorrow. CM will continue to follow. A: Doretha is a 72 yr old female admitted to [facility] on 11/30/22 for pneumonia, hypoxia. P: Anticipate Doretha will return to [facility] once medically cleared. She will likely be transported via private vehicle by [facility] staff. She will follow up with her PCP and discharge plan of care. CM will continue to follow. Guardianship if Applicable Guardianship: [facility] (Paula Royal)
[2022-12-02 11:10] VITALS: BP 158/69; PULSE 93; RESP 28; TEMP 37.4; O2SAT 96
--- NOTE | 2022-12-02 12:00 | RT.EKG_ITS ---
APPROVED REPORT Exam: Resting ECG Reason for Exam: qtc, meds Patient Location: I HR:88 bpm ECG Measurements Heart Rate 88 AXIS MS 147 P 37 QRSd 156 QRS 0 QT 432 T 21 QTc 523 Conclusion Sinus rhythm...normal P axis, V-rate 50- 99 /RBBB Baseline wander in lead(s) V1
[2022-12-02] MEDS: QUEtiapine 25 MG TAB 12.5 MG PO ×2 (12:41→21:29)
[2022-12-02] MEDS: Doxycycline Hyclate 100 MG CAP PO ×2 (13:37→21:36)
--- NOTE | 2022-12-02 14:32 | W.PM.PROGNOT ---
Date of Service Date of service: 12/02/22 Time of Service: 14:32 Assessment and Plan Assessment and plan (1) Community acquired pneumonia: Status: Acute Assessment and plan: Emperic abx, stop Vancomycin, Levofloxacin day 2, downstep to doxycycline for 5 more days in anticipation of discharge tomorrow BC x 2, Sputum, urine legionella/strep, Mycoplasma, MRSA, all negative oxygenating well on room air (2) BETH (acute kidney injury): Status: Acute Assessment and plan: improved after IV hydration, continue to monitor and avoid nephrotoxic drugs (3) COPD (chronic obstructive pulmonary disease): Status: Chronic Assessment and plan: CXR: HEART: Normal size.? Aorta: Not dilated. PULMONARY VASCULATURE: Normal. LUNGS: Underlying fibrotic changes.? Superimposed bilateral patchy infiltrates. PLEURAL SPACE: No pleural effusion or pneumothorax. BONE:Degenerative changes in the spine.? No compression fractures. Albuterol Duo neb Continue Budesonide/Formoterol Fumarate Prednisone 40 mg daily (4) Memory deficit: Status: Chronic Assessment and plan: Continue Donepezil experiencing some acute delirium, expected in the setting of infection and new environment. should clear after returning home safety precautions (5) Anemia: Status: Chronic Assessment and plan: Chronic anemia, H&H ~ baseline 9.5/29.6 will monitor, consider hemodilution after IVF in ED and IV abx (6) Urinary incontinence: Status: Chronic Assessment and plan: Frequent monitoring for wet brief, good hygiene, frequent position changes; consider indwelling catheter if skin becomes a concern (7) Hyperlipidemia: Status: Chronic Assessment and plan: Continue Atorvastatin (8) DVT prophylaxis: Status: Acute Assessment and plan: Enoxaparin (9) Discharge planning issues: Status: Acute Assessment and plan: Return to [facility] when stable discussed with DR Galindo Subjective Subjective Patient reports: afebrile; denies shortness of breath Interval history since last seen: more confused today, hemodynamically stable, oxygenating well on room air. Exam Const General: cooperative Nutritional Appearance: average body habitus Orientation: alert, awake and confused [facility] Head: normal to inspection, normocephalic and atraumatic Mouth: oral mucosae normal Chest Chest: normal inspection of the chest Resp Effort & Inspection: normal respiratory effort Auscultation: diminished lung sounds, no rhonchi and no wheezes Cardio Rate: regular rate Rhythm: regular rhythm GI Inspection: normal to inspection Palpation: soft Auscultation: normal bowel sounds Skin General skin exam: no rashes or lesions noted Extrem General: normal to inspection and full ROM Psych Appearance: grossly normal Mental Status: other (confused, no behavioral issues) Mood: other (confused, no behavioral issues) Thought Content: hallucinations Insight: poor Judgment: poor Objective Last Vital Signs Temp 37.4 C 12/02/22 11:10 Pulse 93 H 12/02/22 11:10 Resp 28 H 12/02/22 11:10 BP 158/69 H 12/02/22 11:10 Pulse Ox 96 12/02/22 11:10 Laboratory Results - last 24 hr 11/30/22 12/02/22 12/02/22 04:18 06:07 06:07 WBC RBC Hgb Hct MCV MCH MCHC RDW Plt Count MPV Immature Gran % Neutrophils % Lymphocytes % Monocytes % Eosinophils % Basophils % Nucleated RBC % Absolute Neutrophils Absolute Lymphocytes Absolute Monocytes Absolute Eosinophils Absolute Basophils RBC Morphology Polychromasia Hypochromasia Sodium 141 Potassium 3.3 L Chloride 110 H Carbon Dioxide 16.1 L Anion Gap 14.9 H BUN 39 H Creatinine 1.3 H Est GFR (CKD-EPI 2020) 43.15 Glucose 88 Calcium 9.3 Magnesium 2.0 C-Reactive Protein 13.45 H Procalcitonin 0.5 Urine Legionella Ag Negative 12/02/22 06:07 WBC 19.57 H RBC 3.49 L Hgb 8.8 L Hct 26.8 L MCV 77 L MCH 25.2 L MCHC 32.8 RDW 16.5 H Plt Count 194 MPV 11.4 H Immature Gran % 6.8 Neutrophils % 77.8 Lymphocytes % 5.9 Monocytes % 9.0 Eosinophils % 0.1 Basophils % 0.4 Nucleated RBC % 0.1 Absolute Neutrophils 15.23 H Absolute Lymphocytes 1.15 L Absolute Monocytes 1.76 H Absolute Eosinophils 0.02 Absolute Basophils 0.08 RBC Morphology See Below Polychromasia Present Hypochromasia 2+ Sodium Potassium Chloride Carbon Dioxide Anion Gap BUN Creatinine Est GFR (CKD-EPI 2020) Glucose Calcium Magnesium C-Reactive Protein Procalcitonin Urine Legionella Ag Time Spent with Patient Time Spent with Patient: 35-49 minutes Time was spent: preparing to see the patient(eg.review tests), obtaining and/or reviewing separately otained hiistory, ordering medications,tests, procedures and indepentently interpreting results
[2022-12-02 14:52] VITALS: BP 164/73; PULSE 95; RESP 22; TEMP 37.5; O2SAT 93
[2022-12-02] MEDS: Enoxaparin 40 MG/0.4 ML SYR SC (17:09)
[2022-12-02] MEDS: Docusate Sodium 100 MG CAP 200 MG PO (21:36)
[2022-12-02] MEDS: traZODone 50 MG TAB PO (21:36)
[2022-12-02] MEDS: Senna TAB 1 TAB PO (21:37)
[2022-12-02] MEDS: Melatonin 3 MG TAB 9 MG PO (21:37)
[2022-12-03] MEDS: Albuterol/Ipratropium 3 ML UPD VIAL UPD (03:19)
[2022-12-03] MEDS: Haloperidol 1 MG TAB PO (04:28)
--- NOTE | 2022-12-03 04:42 | NUR.NOTE ---
Nursing Note: Patient unable to sleep, patient became agitated in halls, yelling and cursing and stated repeatedly she would like to go home to bed. Patient also requesting medicine. This nurse, CC, sat with patient. Discussed with patient that we would call the doctor and get a medicine order. Patient sat with this CC, becoming calmer. Dr. Bolanos ordered 1mg PO Haldol. This nurse discussed with patient, patient willing to take. Patient took medicine and began to fall asleep in wheelchair at desk. This nurse pushed patient back to patient room and transferred patient to recliner with pillow and blankets. Patient able to fall asleep in recliner with patient sitter at side. Will continue to monitor.
--- NOTE | 2022-12-03 08:47 | NUR.NOTE ---
Nursing Note: Accessed chart to determine orders for EKG and to determine whether or not one needs to be cancelled.
--- NOTE | 2022-12-03 09:35 | DSE_ITS ---
Date of service: 12/03/22 Time of Service: 09:35 DS: Diagnosis Discharge Diagnosis (1) Community acquired pneumonia: Status: Acute (2) Acute respiratory failure with hypoxia: Status: Resolved (3) BETH (acute kidney injury): Status: Acute (4) COPD (chronic obstructive pulmonary disease): Status: Chronic (5) Memory deficit: Status: Chronic (6) Anemia: Status: Chronic (7) Urinary incontinence: Status: Chronic (8) Hyperlipidemia: Status: Chronic Discharge Plan Disposition Patient Disposition: Home W/Home Health Services Condition: Stable Discharge Details Reason For Visit: Pneumonia,Hypoxia Admit Date/Time: 11/30/22 15:47 Admit Provider: Georgina Galindo Attending Provider: Georgina Galindo Primary Care Provider: Misti Javier Hospital Course Hospital Course: This is a 72-year-old female arriving to the [facility] ED from a community care home, with a past medical history of Dementia, multiple lung nodules, thrombocytopenia, COPD, GERD, osteoporosis, anemia and urinary incontinence (history obtained by patient's care provider) in the setting of worsening shortness of breath and a productive cough. Her work-up in the emergency department consistent with a community-acquired pneumonia. She was started on vancomycin and Levaquin. Blood cultures urine Legionella strep mycoplasma all sent. Hospital course complicated with acute delirium. She did receive Seroquel but did not respond well to this ultimately receiving Haldol, which she did respond to but her guardian would not authorize its use at discharge so Haldol was discontinued. Her white count remained elevated but thought to be due to steroids that she had no fever and clinically improving respiratory status. She was eating and drinking bowels and bladder functioning on day of discharge her antibiotic was down stepped to doxycycline b ut urine for strep pneumonia did come back positive so she was switched back to levofloxacin. She will complete a 7-day course. She was to resume the rest of her medications as previously prescribed. Discharged back to the care home with home health services her guardian Kristel was updated about patient's discharge plan and again Haldol discontinued accordingly. She is discharged back to her care home in stable condition discharge discussed with Dr. Galindo Home Meds and New Rx's Prescriptions: New levofloxacin 750 mg tablet 750 mg PO Q48H Qty: 3 0RF Continued atorvastatin 40 mg tablet 40 mg PO DAILY melatonin 10 mg capsule 10 mg PO HS PRN sennosides [Natural Senna Laxative] 8.6 mg tablet 8.6 mg PO QHS trazodone 50 mg tablet 50 mg PO QHS PRN sertraline 100 mg tablet 100 mg PO DAILY sertraline 50 mg tablet 50 mg PO DAILY multivitamin Tablet 1 tab PO DAILY montelukast 10 mg tablet 10 mg PO DAILY ferrous sulfate 325 mg (65 mg iron) tablet 325 mg PO Q OTHER DAY donepezil [Aricept] 10 mg tablet 10 mg PO DAILY docusate sodium 100 mg capsule 200 mg PO QHS cholecalciferol (vitamin D3) 25 mcg (1,000 unit) capsule 25 mcg PO DAILY budesonide-formoterol [Symbicort] 160-4.5 mcg/actuation HFA aerosol inhaler 1 puff inhalation BID albuterol sulfate 90 mcg/actuation HFA aerosol inhaler 2 puff inhalation Q4H PRN Discharge Instructions Instructions: Acute Delirium (DC), Pneumonia (DC) Stand Alone Forms: Nursing Discharge Form Referrals: Misti Javier [Primary Care Provider] - 12/10/22 10:40 am Activity:: Activity as Tolerated Equipment/Supplies:: No Equipment Needed Diet:: As Tolerated Discharge Orders Discharge Orders: Discharge Order (Routine); Ordered 12/03/22 Ordered By: Cristin Weber Discharge Data Discharge Date/Time-TO BE ENTERED AT DEPARTURE: 12/03/22 12:56 DS: Summary Time Spent with Patient providing and/or coordinating discharge services: Greater than 30 minutes Status at Discharge Functional status at discharge: uses cane/walker Overall status at discharge: patient is progressing back to baseline Mental Status: other (confused, no behavioral issues) Speech and Movement: speech and movement normal Mood: other (confused, no behavioral issues) Affect: normal affect Exam Const General: cooperative Nutritional Appearance: average body habitus Orientation: alert, awake and confused [facility] Head: normal to inspection, normocephalic and atraumatic Mouth: oral mucosae normal Chest Chest: normal inspection of the chest Resp Effort & Inspection: normal respiratory effort Auscultation: diminished lung sounds, no rhonchi and no wheezes Cardio Rate: regular rate Rhythm: regular rhythm GI Inspection: normal to inspection Palpation: soft Auscultation: normal bowel sounds Skin General skin exam: no rashes or lesions noted Extrem General: normal to inspection and full ROM Psych Appearance: grossly normal Mental Status: other (confused, no behavioral issues) Speech and Movement: speech and movement normal Mood: other (confused, no behavioral issues) Affect: normal affect Thought Content: hallucinations Insight: poor Judgment: poor DS: Data Vitals/I&O Vitals and I&O: Vital Signs Temperature 37.5 C 12/02/22 14:52 Temperature Source Tympanic 12/02/22 14:52 Pulse 95 H 12/02/22 14:52 Pulse Rhythm Regular 12/02/22 23:25 Respiratory Rate 22 12/02/22 14:52 Respiratory Effort Short of Breath 12/02/22 23:25 Respiratory Depth Normal 12/02/22 23:25 Respiratory Pattern Normal 12/02/22 23:25 Blood Pressure 164/73 H 12/02/22 14:52 Blood Pressure Mean 63 11/30/22 16:16 Blood Pressure Position Sitting 11/30/22 12:55 Pulse Oximetry 93 12/02/22 14:52 Oxygen Delivery Method Room Air 12/02/22 14:52 Oxygen Flow Rate 0 12/02/22 14:52 Pain Level 0 12/02/22 14:52 Comment Pt declines VS at this time 12/03/22 00:32 Intake & Output 12/02/22 12/02/22 12/03/22 11:59 23:59 11:59 Intake Total 240 / 240 Output Total 200 / 200 Balance -200 / 40 240 / 40 Weight 61.3 kg Intake: Oral 240 / 240 Output: Urine 200 / 200 Other: Urine Color Yellow Urine Appearance Clear Comment incontinent of urine x5. brief change Voiding Methods Bedside Commode Toilet Diaper Incontinent Data Completed and Pending Labs on day of discharge: Labs from last 24 hours 12/03/22 12/03/22 05:35 05:35 WBC Pending RBC Pending Hgb Pending Hct Pending MCV Pending MCH Pending MCHC Pending RDW Pending Plt Count Pending MPV Pending Immature Gran % Pending Neutrophils % Pending Lymphocytes % Pending Monocytes % Pending Eosinophils % Pending Basophils % Pending Absolute Neutrophils Pending Absolute Lymphocytes Pending Absolute Monocytes Pending Absolute Eosinophils Pending Absolute Basophils Pending Sodium Pending Potassium Pending Chloride Pending Carbon Dioxide Pending Anion Gap Pending BUN Pending Creatinine Pending Est GFR (CKD-EPI 2021) Pending Glucose Pending Calcium Pending Preliminary micro results at discharge 11/30/22 22:20 Sputum Culture - Preliminary Sputum Normal Katey 11/30/22 15:12 Blood Culture - Preliminary Blood NO GROWTH 48 HOURS 11/30/22 14:29 Blood Culture - Preliminary Blood NO GROWTH 48 HOURS PFSH All Active Problems (Updated 12/04/22 @ 00:03 by BRIDGETT ANDERSON) Hyperlipidemia (Chronic) Fall (Acute) Facial contusion (Acute) Multiple lung nodules on CT (Acute) BETH (acute kidney injury) (Acute) Community acquired pneumonia (Acute) Low back pain (Acute) Knee pain, bilateral (Acute) Thrombocytopenia (Chronic) COPD (chronic obstructive pulmonary disease) (Chronic) GERD (gastroesophageal reflux disease) (Chronic) Osteoporosis (Chronic) Memory deficit (Chronic) Tremor (Acute) Anemia (Chronic) Urinary incontinence (Chronic) Screening for colon cancer (Acute) Medical History Anxiety Asthma, chronic Hx of pancreatitis Hyperlipidemia Memory loss MSSA bacteremia Sciatica Social History Smoking/Tobacco Use Status: Never Smoking risk assessment performed?: Yes Alcohol Intake: never Substance use type: does not use Do you feel safe at home: Yes Do you feel safe in your relationship?: Yes Additional Social history: pt lives in care home where she is cared for by caregivers., dementia at baseline. Time Spent with Patient Time Spent with Patient: 45-69 minutes Time was spent: preparing to see the patient(eg.review tests), obtaining and/or reviewing separately otained hiistory, ordering medications,tests, procedures, referring, communicating with other health nursing care attendant, indepentently interpreting results, counseling the patient (Guardian) and care coordination
[2022-12-03 10:36] LABS: HCT 25.6 % (36.0-46.0); HGB 8.4 g/dL (11.2-15.7); MCH 25.5 pg (27.0-33.0); MCHC 32.8 % (32.0-36.0); MCV 78 fL (80-95); Platelet Count 184 10^3/uL (130-400); RDW 16.8 % (11.7-14.6); RDW-SD 47.9 fL; WBC 15.76 10^3/uL (4.4-10.8)
[2022-12-03 10:44] LABS: Anion Gap 11.6 mmol/L (3-11); BUN 38 mg/dL (7-18); CO2 17.4 mmol/L (21.0-32.0); CREATININE 1.1 mg/dL (0.55-1.02); Calcium 8.8 mg/dL (8.5-10.1); Chloride 110 mmol/L (98-107); Estimated GFR 52.73 (mL/min/1.73m2); Glucose 100 mg/dL (74-106); Potassium 3.7 mmol/L (3.5-5.1); Sodium 139 mmol/L (136-145)
[2022-12-03] MEDS: Atorvastatin 40 MG TAB PO (10:48)
[2022-12-03] MEDS: Donepezil 5 MG TAB 10 MG PO (10:49)
[2022-12-03] MEDS: Doxycycline Hyclate 100 MG CAP PO (10:49)
[2022-12-03] MEDS: Multivitamin TAB 1 TAB PO (10:49)
[2022-12-03] MEDS: Cholecalciferol (Vitamin D3) 1,000 UNIT TAB 1000 UNITS PO (10:49)
[2022-12-03] MEDS: Benzonatate 200 MG CAP PO (10:49)
--- NOTE | 2022-12-03 10:49 | PDOC.HHF2F ---
Home Health Referral Home Health Orders Clinical synopsis of why skilled professionals are needed: ambulatory dysfunction Medical diagnosis necessitation home health referral: deconditioning Physical Therapist: Check all that apply Increase strength & endurance for safe mobility at home: Ordered To design/establish home maintenance program: Ordered Fall reduction therapy program for patient with history of frequent falls: Ordered Home safety evaluation and teaching/gait training including stair management (if applicable): Ordered Occupational Therapist: Evaluate and treat for patient unable to perform ADL/IADL/self-care: Ordered Upper extremity strengthening, range and motion: Ordered Encounter Date and Reason: I certify that a FTF encounter for this patient was performed on December 03, 2022 and that such encounter was related to the primary reason the patient requires home health services. The encounter was conducted in the following manner: By me as the certifying physician, ICE CREAM FREEZER ASSISTANT, PA or By an inpatient physician, ICE CREAM FREEZER ASSISTANT or PA during an inpatient stay who communicated findings to me, Certification And Authentication I certify that I composed the above information based on my clinical judgment relating to this patient's medical condition and, if applicable, clinical findings communicated to me by the NPP or inpatient physician who performed the FTF encounter. Name of Provider that will be monitoring home health services: Misti Javier
[2022-12-03] MEDS: Sertraline 100 MG TAB PO (10:50)
[2022-12-03] MEDS: guaiFENesin 600 MG TABCR PO (10:50)
[2022-12-03] MEDS: Montelukast 10 MG TAB PO (10:50)
[2022-12-03] MEDS: Ferrous Sulfate 325 MG TAB PO (10:50)
[2022-12-03] MEDS: Sertraline 50 MG TAB PO (10:51)
[2022-12-03] MEDS: Potassium Chloride 20 MEQ TABCR PO (10:52)
[2022-12-03 10:53] LABS: Absolute Lymphocyte Count 2.36 10^3/uL (1.2-3.4); Absolute Monocyte Count 1.58 10^3/uL (0.1-0.8); Anisocytosis 1+; Bands % 2; Diff Comment Manual Differential; Metamyelocytes % 2
[2022-12-03 10:54] LABS: Poikilocytes 1+; Polychromasia Present
--- NOTE | 2022-12-03 14:45 | CHAPLAIN ---
Doretha was coloring in a coloring book when I visited. She was pleasant talked about what she was coloring. She was later discharged.
[2022-12-03 16:41] LABS: Streptococcus Pneumoniae Ag, U Positive (Negative)
--- NOTE | 2022-12-03 18:57 | CMDISCH_ITS ---
Date of service: 12/03/22 Time of Service: 18:58 LACE Index Scoring Tool Questions: Length of Stay (in days): 3 Was the patient admitted via the E.D.?: Yes Comorbidities: Chronic Pulmonary Disease and Dementia E.D. Visits: 1 Answers: Total Score: 12 Risk of Readmission: High Risk Care Management Discharge Plan Reason for Hospitalization: Pneumonia, hypoxia Discharge Plan: Doretha returned to [place] today after being evaluated by the nurse from [facility]. Per report, she was given haldol overnight with success, and the nurse requested that she have a short script sent in by the provider to help with her transition home. CM discussed this with her Guardian, who did not agree that haldol should be prescribed. CM connected the provider and the guardian to determine the plan for discharge medications. [facility] also re quested PT/OT, which was ordered upon discharge. Staff from [place] transported Doretha home via private vehicle. She will follow up with her PCP and her discharge plan of care. Patient/Family Education Needs: Review discharge instructions and limitations with [facility] staff, discussion of self care needs including ask me three and goals of care. Services Needed at Discharge: Home Health Care Services
== END 2022-12-03 12:56 | disposition home health service (06) | DRG 193 ==
LOC: ER 15:33 → MS 16:42
PROVIDERS: Nurse Practitioner Acute Care; Nurse Practitioner Family; Admitting Provider Internal Medicine; Emergency Provider Emergency Medicine; PCP Nurse Practitioner Family; Visit Provider Internal Medicine
DX: J18.9 Pneumonia, unspecified organism (principal); J96.01 Acute respiratory failure with hypoxia; J44.0 Chronic obstructive pulmonary disease with (acute) lower respiratory infection; N17.9 Acute kidney failure, unspecified; R32 Unspecified urinary incontinence; E78.5 Hyperlipidemia, unspecified; F03.90 Unspecified dementia, unspecified severity, without behavioral disturbance, psychotic disturbance, mood disturbance, and anxiety; R91.8 Other nonspecific abnormal finding of lung field; D69.6 Thrombocytopenia, unspecified; K21.9 Gastro-esophageal reflux disease without esophagitis; M81.0 Age-related osteoporosis without current pathological fracture; I95.9 Hypotension, unspecified; E87.6 Hypokalemia; R73.9 Hyperglycemia, unspecified; D50.9 Iron deficiency anemia, unspecified; M54.50 Low back pain, unspecified; R25.1 Tremor, unspecified
CPT/HCPCS: 36415; 80048; 80053; 82550; 82805; 84145; 87040; 87081; 87449; 87637; 94640; 96365; 96366; 99285; J1650; 71046; 83605; 83735; 84484; 85025; 86140; 87070; 87205; 87581; 87899; 93005; 93010; 94664; 94667; 94668; 94760; 99222; 99233; 99239; J0744; J1956; J3480; J7512; J7620

== ENCOUNTER 2023-02-04 13:42 | Outpatient (REF) | payer MEDICARE, MEDICAID, SELFPAY ==
[2023-02-04 15:19] LABS: Abs Immature Grans 0.04 10^3/uL (0.0-0.06); Absolute Basophil Count 0.07 10^3/uL (0.0-0.2); Absolute Eosinophil Count 0.29 10^3/uL (0.0-0.7); Absolute Lymphocyte Count 1.03 10^3/uL (1.2-3.4); Absolute Monocyte Count 0.77 10^3/uL (0.1-0.8); Absolute Neutrophil Count 6.92 10^3/uL (1.2-6.7); Basophils % 0.8; Eosinophils % 3.2; HCT 31.4 % (36.0-46.0); HGB 9.8 g/dL (11.2-15.7); Immature Grans % 0.4; Lymphocytes % 11.3; MCH 25.3 pg (27.0-33.0); MCHC 31.2 % (32.0-36.0); MCV 81 fL (80-95); MPV 11.3 fL (8.0-11.0); Monocytes % 8.4; Neutrophils % 75.9; Platelet Count 200 10^3/uL (130-400); RBC 3.87 10^6/uL (3.93-5.22); RDW 16.6 % (11.7-14.6); RDW-SD 49.1 fL; WBC 9.12 10^3/uL (4.4-10.8)
[2023-02-04 16:33] LABS: Iron 23 ug/dL (50-170); Total Iron Binding Capacity 244 ug/dL (250-450); Transferrin Sat 9 % (15-50)
[2023-02-04 16:41] LABS: Anion Gap 9.7 mmol/L (3-11); BUN 23 mg/dL (7-18); CO2 26.3 mmol/L (21.0-32.0); Calcium 8.6 mg/dL (8.5-10.1); Chloride 107 mmol/L (98-107); Estimated GFR 59.12 (mL/min/1.73m2); Ferritin 202 ng/mL (8-252); Glucose 98 mg/dL (74-106); Potassium 4.4 mmol/L (3.5-5.1); Sodium 143 mmol/L (136-145)
== END 2023-02-04 13:43 | disposition home or self-care (01) ==
LOC: NCHCN 13:42
PROVIDERS: PCP Nurse Practitioner Family; Visit Provider Nurse Practitioner Family
DX: R10.11 Right upper quadrant pain (principal); M17.9 Osteoarthritis of knee, unspecified; J13 Pneumonia due to Streptococcus pneumoniae; R91.8 Other nonspecific abnormal finding of lung field; D47.2 Monoclonal gammopathy; R32 Unspecified urinary incontinence; D64.9 Anemia, unspecified; J44.9 Chronic obstructive pulmonary disease, unspecified
CPT/HCPCS: 80048; 82728; 83540; 83550; 85025

== ENCOUNTER 2023-02-10 02:58 | Outpatient (CLI) | payer MEDICARE, MEDICAID, SELFPAY ==
--- NOTE | 2023-02-10 | DI.RAD_ITS ---
Exam(s) XR CHEST 2V PA LATERAL EXAM: XR CHEST 2V PA LATERAL CLINICAL HISTORY: MURMUR,R01,PULMONARY INFILTRATE,R91.8,COPD,J44.9,ASTHMA,J45.998 TECHNIQUE: 2D digital imaging was performed. COMPARISON: CR XR CHEST 2V PA LATERAL from 05/01/2022 CR XR CHEST 2V PA LATERAL from 11/30/2022 FINDINGS: HEART: Enlarged, stable. Aorta: Not dilated. PULMONARY VASCULATURE: Normal. LUNGS: Fibrotic changes. No superimposed infiltrates. PLEURAL SPACE: No pleural effusion or pneumothorax. BONE:Unremarkable for age. IMPRESSION: No acute abnormality. DATA REPOSITORY: RADIATION DOSE DELIVERED:
== END 2023-02-10 03:18 ==
LOC: DI 02:59
PROVIDERS: PCP Nurse Practitioner Family; Visit Provider Nurse Practitioner Family
DX: R01.1 Cardiac murmur, unspecified (principal); R91.8 Other nonspecific abnormal finding of lung field; J44.9 Chronic obstructive pulmonary disease, unspecified; J45.998 Other asthma
CPT/HCPCS: 71046

== ENCOUNTER 2023-02-11 02:40 | Outpatient (CLI) | payer MEDICARE, MEDICAID, SELFPAY ==
[2023-02-11] MEDS: Albuterol HFA 18 GM 200 PUFF INH IH (14:17)
[2023-02-11] MEDS: Inhaler, Assist Device 1 EACH MC (14:21)
--- NOTE | 2023-02-12 09:22 | W.PFT ---
Date of service: 02/11/23 Time of Service: 13:07 Pulmonary Function Test Result Indications: COPD Interpretation Spirometry: There is no airflow limitation by FEV1/FVC, however there may be mild obstruction based on the flow volume loop and volume time curve. There is a bronchodilator response. Lung Volumes: Normal lung volumes. Diffusion Capacity: Decreased diffusion Airway Pressure: Increased airways resistance. Impression Possible mild airflow obstruction with a significant bronchodilator response and a decreased diffusion. This could represent COPD with emphysema, asthma or a combination of COPD and asthma. The decrease in diffusion is disproportionately lower than possible obstruction, would consider ILD, pulmonary hypertension or emphysema. Clinical Correlation therefore is recommended.
== END 2023-02-11 02:41 | disposition home or self-care (01) ==
LOC: RT 02:40
PROVIDERS: PCP Nurse Practitioner Family; Visit Provider Nurse Practitioner Family
DX: R01.1 Cardiac murmur, unspecified (principal); R91.8 Other nonspecific abnormal finding of lung field; J45.998 Other asthma; J44.9 Chronic obstructive pulmonary disease, unspecified
CPT/HCPCS: 94060; 94726; 94729

== ENCOUNTER → 2023-02-16 10:48 | Outpatient (BNVA) | payer MEDICARE, MEDICAID, SELFPAY | PROVIDERS: PCP Nurse Practitioner Family; Referring Provider Nurse Practitioner Family; Visit Provider Psychiatry & Neurology Neurology | DX: G25.0 Essential tremor (principal); F03.90 Unspecified dementia, unspecified severity, without behavioral disturbance, psychotic disturbance, mood disturbance, and anxiety; F81.9 Developmental disorder of scholastic skills, unspecified | CPT/HCPCS: 99215 ==

== ENCOUNTER → 2023-02-25 10:27 | Outpatient (BNVA) | payer MEDICARE, MEDICAID, SELFPAY | PROVIDERS: PCP Nurse Practitioner Family; Visit Provider Physical Therapy Assistant | DX: Z12.11 Encounter for screening for malignant neoplasm of colon (principal) ==

== ENCOUNTER 2023-03-16 07:09 | Day surgery (SDC) | payer MEDICARE, MEDICAID, SELFPAY ==
[2023-03-16 07:25] VITALS: BP 145/51; PULSE 65; RESP 16; TEMP 36; O2SAT 99
--- NOTE | 2023-03-16 07:52 | W.ANESPRE ---
General Info Date of Service Date Performed: 03/16/23 Height: 4 ft 8 in Weight: 62.596 kg Body Mass Index (BMI): 30.9 Surgical Procedure: Operation Date: 03/16/23 08:20 Proposed Procedure Side Surgeon kathy Munoz MD Meds Allergies and Home Medications Allergies Allergy/AdvReac Type Severity Reaction Status Date / Time cephalexin Allergy Severe Verified 03/16/23 07:42 tetanus toxoid, adsorbed Allergy Severe Verified 03/16/23 07:42 diclofenac Allergy Intermediate Verified 03/16/23 07:42 shellfish derived Allergy Intermediate Verified 03/16/23 07:42 Sulfa (Sulfonamide Allergy Intermediate Verified 03/16/23 07:42 Antibiotics) acetaminophen Allergy Mild Verified 03/16/23 07:42 adhesive tape Allergy Mild Verified 03/16/23 07:42 Home Medication Medication Instructions Recorded albuterol sulfate 90 mcg/actuation 2 puff inhalation Q4H PRN 07/21/22 aerosol inhaler cholecalciferol (vitamin D3) 25 25 mcg PO DAILY 07/21/22 mcg (1,000 unit) capsule donepezil 10 mg tablet (Aricept) 10 mg PO DAILY 07/21/22 ferrous sulfate 325 mg (65 mg 325 mg PO Q OTHER DAY 07/21/22 iron) tablet montelukast 10 mg tablet 10 mg PO DAILY 07/21/22 multivitamin 1 tab PO DAILY 07/21/22 sertraline 100 mg tablet 100 mg PO DAILY 07/21/22 sertraline 50 mg tablet 50 mg PO DAILY 07/21/22 trazodone 50 mg tablet 50 mg PO QHS PRN 07/21/22 atorvastatin 40 mg tablet 40 mg PO DAILY 10/08/22 primidone 50 mg tablet 25 mg PO QHS #45 tabs 02/16/23 bisacodyl 5 mg tablet,delayed 5 mg PO ONCE #4 tabs 02/25/23 release (Dulcolax (bisacodyl)) docusate sodium 100 mg tablet 100 mg PO BID 02/25/23 melatonin 10 mg capsule 10 mg PO HS 02/25/23 mometasone-formoterol HFA 200 2 puff inhalation BID 02/25/23 mcg-5 mcg/actuation aerosol inhaler (Dulera) polyethylene glycol 3350 17 17 g PO ONCE #238 grams 08/03/23 gram/dose oral powder ascorbic acid (vitamin C) 250 mg See Rx Instructions .Route .COMPLEX 03/16/23 tablet Current Visit Medications: Current Medications Generic Name Dose Route Start Last Admin Trade Name Sharon PRN Reason Stop Dose Admin Ringer's Solution 1,000 mls @ 80 mls/hr 03/16/23 06:00 IV 03/25/23 23:59 INFUSION LUIS A IV Miscellaneous Supplies 1 each 03/16/23 06:00 Iv Access IV 03/25/23 23:59 DIRECTED LUIS A Sodium Chloride 0 ml 03/16/23 06:00 Normal Saline Flush 10 Ml Syr IV 03/25/23 23:59 PRN PRN Sodium Chloride 0 ml 03/16/23 06:00 Normal Saline 10 Ml Vial IJ 03/25/23 23:59 DIRECTED PRN Sterile Water 0 ml 03/16/23 06:00 Water,Injection,Sterile 10 Ml Vial IJ 03/25/23 23:59 DIRECTED PRN PFSH Active Problems Active Problems: Problem Status Onset Code Dementia F03.90 Cognitive developmental delay F81.9 Essential tremor G25.0 Cervical stenosis of spine M48.02 Murmur R01.1 Hyperlipidemia E78.5 Low back pain M54.50 Knee pain, bilateral M25.561, M25.562 Thrombocytopenia D69.6 COPD (chronic obstructive pulmonary disease) J44.9 GERD (gastroesophageal reflux disease) K21.9 Osteoporosis M81.0 Memory deficit R41.3 Tremor R25.1 Anemia D64.9 Urinary incontinence R32 Screening for colon cancer Z12.11 Medical History Medical History Anxiety Asthma, chronic Hx of pancreatitis Memory loss MSSA bacteremia Sciatica Medical History Comments:: Per pt. nurse states that she won't be able to verify history but she will pretend to Surgical History Surgical History S/P emergency Tobacco Smoking/Tobacco Use Status: Unknown Alcohol Alcohol Intake: never Substance Use Substance use type: does not use Vital Signs and Lab Results Lab Results Blood Type / Crossmatch: No Data to Display Complete Blood Count: No Data to Display Complete Metabolic Panel: No Data to Display Liver Function Panel: No Data to Display Coagulation Panel: No Data to Display Cardiac Panel: No Data to Display Arterial Blood Gas: No Data to Display Venous Blood Gas: No Data to Display Pancreas Panel: No Data to Display Thyroid Panel: No Data to Display Infectious Disease: No Data to Display Blood Cultures: No Data to Display Toxicology Panel: No Data to Display Anesthesia Assessment and Plan Anesthesia History Personal History: Unknown Anesthesia History Family History: Family History Unknown Exercise Tolerance Exercise Tolerance: Metabolic Equivalents>4 Pertinent Negatives Pertinent Negatives: No Symptoms of GERD Cardiac & Pulmonary Exam Cardiac Exam: Normal S1/S2 Heart Sounds Pulmonary Exam: Clear Bilateral Breath Sounds Implantable Cardiac Device Does patient have a Pacemaker or an ICD?: No Airway Exam Known Difficult Airway: No Mallampati Class: 2 Mouth Opening: Normal (> 3cm) Thyromental Distance: Greater than 3 cm Neck Range of Motion: Full ROM Neck Circumference: Normal Teeth Condition: Normal Dentition ASA Classification ASA Score: ASA 2 Emergency Case?: No NPO Status NPO Status: NPO Clears >2 hours, Solids >8 hours Anesthesia Plan Resuscitation Status: Full Code Anesthesia Technique: General Anesthesia Airway Planned: Natural Airway Monitors Used: Standard Monitors
[2023-03-16 07:53] VITALS: BMI 30.9
[2023-03-16] MEDS: Lactated Ringers 1,000 ML 80 ML IV (07:55)
--- NOTE | 2023-03-16 09:15 | W.COLOREPORT ---
Date of service: 03/16/23 Time of Service: 09:21 Colonoscopy Report Procedure Description: Procedures performed: 1. Colonoscopy with snare polypectomy Preoperative diagnosis: Surveillance colonoscopy Postoperative diagnosis: Colon polyps, grade 2 internal hemorrhoids Surgeon: Sobia Munoz Anesthesia: Meliton Indication for procedure: 73-year-old woman with mild cognitive delay who denies any symptoms or family history of colon cancer and is due for surveillance. No reported prior issues. Findings: Normal terminal ileum.? Appendiceal orifice seems ablated (probably has had an appendectomy) In the ascending colon a 3-5 mm sessile polyp was removed with hot snare technique. No diverticular disease anywhere. No other polyps. In the rectum, grade 2 internal hemorrhoids are present at all 3 columns. Surveillance/follow-up recommendations: 3-10 years. If sessile serrated or villous histology than 3 years. If a simple tubular adenoma or hyperplastic then 7 to 10 years. Complications: None Blood loss: Minimal Prep: Excellent Specimens:? None Procedure in detail: Written consent was obtained from the patient's caregiver/legal guardian who was in agreement with the risks, benefits and indications of the procedure.? We went to the endoscopy suite and laid the patient in left lateral decubitus position.? Anesthesia was administered which was tolerated well.? A timeout was performed and when we are all in agreement we began the procedure. Digital rectal exam and visual examination was performed and within normal limits.? A well?lubricated colonoscope was advanced without difficulty all the way to the cecum identified by the ileocecal valve, and triangular folds and appendiceal orifice.? Terminal ileum was normal.? It was then slowly withdrawn.?? Retroflexion was performed in the rectum.? The findings/interventions are noted above. The scope was then removed and the patient tolerated the procedure well and was then taken back to the PACU in hemodynamically stable condition.
--- NOTE | 2023-03-16 10:05 | BOWEL_PTH ---
PATIENT: Doretha Govea I LOC: [facility] U#:[id number] AGE/SX: 73/F ROOM: RE03/16/[address]: Manas Munoz : 1950 BED: DIS: 03/16/2023 SPEC #: [id number] RECD: 03/16/23 12:49 STATUS: JOSELIN RE #: [id number] JUAN DANIEL: 03/16/23 10:[address]: Manas Munoz DEPT: Surgical Specimen RECD BY: Jana Howell ENTERED: 03/16/23 12:50 SP TYPE: Bowel OTHR DR: Misti Javier Tissues: 1 - BIOPSY BOWEL Procedures: GROSS AND MICRO LEVEL 4 Comments: [id number]
[2023-03-16 10:20] VITALS: BP 131/52; PULSE 69; RESP 16; TEMP 36.3; O2SAT 98
--- NOTE | 2023-03-16 10:24 | W.PM.DSUDISC ---
Date of service: 03/16/23 Time of Service: 10:24 Discharge Plan Disposition Patient Disposition: Home Condition: Good Discharge Details Attending Provider: Manas Munoz Primary Care Provider: Misti Javier Home Meds and New Rx's Prescriptions: No Action Dulera 200-5 mcg/actuation HFA aerosol inhaler 2 puff inhalation BID melatonin 10 mg capsule 10 mg PO HS docusate sodium 100 mg tablet 100 mg PO BID bisacodyl [Dulcolax (bisacodyl)] 5 mg tablet,delayed release (DR/EC) 5 mg PO ONCE Qty: 4 0RF Rx Instructions: Take per colonoscopy instructions provided by ordering providers office polyethylene glycol 3350 17 gram/dose powder 17 g PO ONCE Qty: 238 0RF Rx Instructions: Take per colonoscopy instructions provided by ordering providers office atorvastatin 40 mg tablet 40 mg PO DAILY primidone 50 mg tablet 25 mg PO QHS Qty: 45 3RF trazodone 50 mg tablet 50 mg PO QHS PRN sertraline 100 mg tablet 100 mg PO DAILY sertraline 50 mg tablet 50 mg PO DAILY multivitamin Tablet 1 tab PO DAILY montelukast 10 mg tablet 10 mg PO DAILY ferrous sulfate 325 mg (65 mg iron) tablet 325 mg PO Q OTHER DAY donepezil [Aricept] 10 mg tablet 10 mg PO DAILY cholecalciferol (vitamin D3) 25 mcg (1,000 unit) capsule 25 mcg PO DAILY albuterol sulfate 90 mcg/actuation HFA aerosol inhaler 2 puff inhalation Q4H PRN ascorbic acid (vitamin C) 250 mg Tablet See Rx Instructions .ROUTE .COMPLEX Rx Instructions: 250 mg orally M/W/F Discharge Instructions Additional Instructions: FINDINGS: A small polyp was found and removed from the colon. This is why we do the colonoscopies. No emergent findings. Another colonoscopy can be considered in 7 to 10 years if a good life expectancy is felt to be anticipated at that time. Stand Alone Forms: Colonoscopy Post Instructions Activity:: Activity as Tolerated Diet:: As Tolerated Discharge Orders Discharge Orders: Discharge Order (Routine); Ordered 03/16/23 Ordered By: Manas Munoz
--- NOTE | 2023-03-16 10:26 | W.PM.DSUDISC ---
Date of service: 03/16/23 Time of Service: 10:29 Discharge Plan Disposition Patient Disposition: Home Condition: Good Discharge Details Attending Provider: Manas Munoz Primary Care Provider: Misti Javier Home Meds and New Rx's Prescriptions: Continued Dulera 200-5 mcg/actuation HFA aerosol inhaler 2 puff inhalation BID melatonin 10 mg capsule 10 mg PO HS bisacodyl [Dulcolax (bisacodyl)] 5 mg tablet,delayed release (DR/EC) 5 mg PO ONCE Qty: 4 0RF Rx Instructions: Take per colonoscopy instructions provided by ordering providers office atorvastatin 40 mg tablet 40 mg PO DAILY primidone 50 mg tablet 25 mg PO QHS Qty: 45 3RF trazodone 50 mg tablet 50 mg PO QHS PRN sertraline 100 mg tablet 100 mg PO DAILY sertraline 50 mg tablet 50 mg PO DAILY multivitamin Tablet 1 tab PO DAILY montelukast 10 mg tablet 10 mg PO DAILY ferrous sulfate 325 mg (65 mg iron) tablet 325 mg PO Q OTHER DAY donepezil [Aricept] 10 mg tablet 10 mg PO DAILY cholecalciferol (vitamin D3) 25 mcg (1,000 unit) capsule 25 mcg PO DAILY albuterol sulfate 90 mcg/actuation HFA aerosol inhaler 2 puff inhalation Q4H PRN ascorbic acid (vitamin C) 250 mg Tablet See Rx Instructions .ROUTE .COMPLEX Rx Instructions: 250 mg orally M/W/F Discontinued docusate sodium 100 mg tablet 100 mg PO BID polyethylene glycol 3350 17 gram/dose powder 17 g PO ONCE Qty: 238 0RF Rx Instructions: Take per colonoscopy instructions provided by ordering providers office Discharge Instructions Additional Instructions: FINDINGS: A small polyp was found and removed from the colon. This is why we do the colonoscopies. No emergent findings. Another colonoscopy can be considered in 7 to 10 years if a good life expectancy is felt to be anticipated at that time. Stand Alone Forms: Anesthesia Discharge Inst., Colonoscopy Post Instructions, Annamaria Fisher ([facility]) Activity:: Activity as Tolerated Diet:: As Tolerated Discharge Orders Discharge Orders: Discharge Order (Routine); Ordered 03/16/23 Ordered By: Manas Munoz
--- NOTE | 2023-03-16 10:31 | W.ANESPOSTOP ---
Postoperative Evaluation Date, Time and Location Date Performed: 03/16/23 Time Performed: 10:31 Patient Location: Day Surgery Unit Vital Signs Most Recent Imported Vital Signs: Most Recent Vital Signs Temp Pulse Resp BP Pulse Ox 36.3 C L 69 16 131/52 L 98 03/16/23 10:20 03/16/23 10:20 03/16/23 10:20 03/16/23 10:20 03/16/23 10:20 Pain Score Most Recent Pain Score: Most Recent Pain Score Pain Level 0 03/16/23 10:20 Assessment Mental Status: Awake (Alert & Oriented to Patient Baseline) Airway and Respiratory Function: Patent airway with normal (patient baseline) respiratory exam Cardiovascular Function: Hemodynamically Stable Hydration Status: Adequately Hydrated Nausea & Vomiting: No Nausea or Vomiting Pain: Pt. Denies Any Pain Peripheral Nerve Block: Patient did not receive a nerve block
[2023-03-16 10:55] VITALS: BP 149/54; PULSE 68; RESP 18; TEMP 37.2; O2SAT 99
== END 2023-03-16 11:48 | disposition home or self-care (01) ==
PROVIDERS: PCP Nurse Practitioner Family; Visit Provider Student in an Organized Health Care Education/Training Program
PROC: 0DJD8ZZ Inspection of Lower Intestinal Tract, Via Natural or Artificial Opening Endoscopic (ICD-10-PCS; CPT 45378; principal; 2023-03-16 08:15)
DX: Z12.11 Encounter for screening for malignant neoplasm of colon (principal); K64.1 Second degree hemorrhoids; K63.5 Polyp of colon
CPT/HCPCS: 45385; 88305

== ENCOUNTER → 2023-03-31 13:03 | Outpatient (BNVA) | payer MEDICARE, MEDICAID, SELFPAY | PROVIDERS: PCP Nurse Practitioner Family; Referring Provider Nurse Practitioner Family; Visit Provider Psychiatry & Neurology Neurology | DX: G25.0 Essential tremor (principal); F81.9 Developmental disorder of scholastic skills, unspecified; F03.90 Unspecified dementia, unspecified severity, without behavioral disturbance, psychotic disturbance, mood disturbance, and anxiety | CPT/HCPCS: 99213 ==

== ENCOUNTER → 2023-04-05 01:08 | Outpatient (CLI) | payer MEDICARE, MEDICAID, SELFPAY ==
--- NOTE | 2023-04-05 10:00 | DI.CT_ITS ---
Exam(s) CT CHEST HIGH RESOLUTION EXAM: CT CHEST HIGH RESOLUTION CLINICAL HISTORY: assess pattern/presence of ILD,interstitial lung disease,j84.9. TECHNIQUE: Multi planar reconstructions were performed. CONTRAST MATERIAL: None COMPARISON: CR XR CHEST 2V PA LATERAL from 11/30/2022 CR XR CHEST 2V PA LATERAL from 02/10/2023 FINDINGS: CHEST: LUNGS: There relatively symmetrical increased interstitial markings in both lung gage some scarring also evident in the lung bases. No distinct ominous pulmonary nodules and there are no pleural effu sions. Also small areas of ground-glass infiltrate. No significant findings in trachea and mainstem bronchi. Six very small right pleural effusion. No left pleural effusion. MEDIASTINUM: There is no obvious hilar nor mediastinal adenopathy. Visualized thyroid unremarkable.No obvious axillary adenopathy CARDIAC: Heart size minimally prominent. No pericardial effusion.Caliber of the thoracic aorta is wi thin normal limits. VISUALIZED UPPER ABDOMEN: No obvious findings. OSSEOUS: No significant osseous lesions.No fractures. IMPRESSION: 1. Relatively symmetrical bilateral interstitial disease. Some scarring in both lung bases noted. 2. No pleural effusions nor intrathoracic adenopathy. 3. Minimally prominent heart size. There is no pericardial effusion. RADIATION DOSE DELIVERED: 501.64mGy.cm Total DLP DATA REPOSITORY: All CT scans at this facility are submitted to the National Radiology Data Registry (NRDR) Dose Index Registry (DIR) with the [employer] (ACR). RADIATION OPTIMIZATION: All CT scans at this facility use at least one of these dose optimization te chniques: automated exposure control; mA and/or kV adjustment per patient size (includes targeted exa ms where dose is matched to clinical indication); or iterative reconstruction.
== END ==
PROVIDERS: PCP Nurse Practitioner Family; Visit Provider Student in an Organized Health Care Education/Training Program
DX: J84.9 Interstitial pulmonary disease, unspecified (principal)
CPT/HCPCS: 71250

== ENCOUNTER 2023-04-12 04:41 | Outpatient (CLI) | payer MEDICARE, MEDICAID, SELFPAY ==
[2023-04-12 12:31] LABS: Abs Immature Grans 0.07 10^3/uL (0.0-0.06); Absolute Basophil Count 0.06 10^3/uL (0.0-0.2); Absolute Eosinophil Count 0.27 10^3/uL (0.0-0.7); Absolute Lymphocyte Count 0.83 10^3/uL (1.2-3.4); Absolute Monocyte Count 0.86 10^3/uL (0.1-0.8); Absolute Neutrophil Count 5.78 10^3/uL (1.2-6.7); Basophils % 0.8; Eosinophils % 3.4; HCT 32.6 % (36.0-46.0); HGB 10.2 g/dL (11.2-15.7); Immature Grans % 0.9; Lymphocytes % 10.5; MCH 25.4 pg (27.0-33.0); MCHC 31.3 % (32.0-36.0); MCV 81 fL (80-95); MPV 10.6 fL (8.0-11.0); Monocytes % 10.9; Neutrophils % 73.5; Platelet Count 193 10^3/uL (130-400); RBC 4.02 10^6/uL (3.93-5.22); RDW 17.2 % (11.7-14.6); RDW-SD 51.1 fL; WBC 7.87 10^3/uL (4.4-10.8)
[2023-04-13 18:04] LABS: Rheumatoid Factor <8.6 IU/mL (<12.0)
[2023-04-14 08:20] LABS: IgE 8 IU/mL (<158)
[2023-04-14 09:12] LABS: Cyclic Citrullinated Peptide <2.5 U/mL (<5.0)
[2023-04-14 15:07] LABS: ANA Interpretation Positive (Negative); ANA Titer Pattern 1:320 Speckled
== END 2023-04-12 04:42 | disposition home or self-care (01) ==
LOC: LBO 04:41
PROVIDERS: PCP Nurse Practitioner Family; Visit Provider Student in an Organized Health Care Education/Training Program
DX: J84.9 Interstitial pulmonary disease, unspecified (principal); J45.909 Unspecified asthma, uncomplicated; R76.0 Raised antibody titer; D64.9 Anemia, unspecified
CPT/HCPCS: 36415; 86200; 82785; 85025; 86038; 86431

== ENCOUNTER 2023-04-20 02:23 | Outpatient (CLI) | payer MEDICARE, MEDICAID, SELFPAY ==
[2023-04-21 17:35] LABS: Scl 70 Antibodies, IgG 0.4 U
[2023-04-23 12:43] LABS: Sm (Smith) Ab, IgG 2.9 Units (<20.0)
[2023-04-23 13:19] LABS: SS-B (La) Ab, IgG 2.5 Units (<20.0)
[2023-04-23 13:34] LABS: dsDNA Ab, IgG 13.2 IU/mL (<30.0)
[2023-04-23 15:00] LABS: SS-A Antibody 1.2 Units (<20.0)
[2023-05-07 03:09] LABS: Anti-EJ Ab Negative (Negative); Anti-Jo-1 Ab <20 Units (<20); Anti-Ku Ab Negative (Negative); Anti-MDA-5 Ab (CADM-140) <20 Units (<20); Anti-Mi-2-Ab Negative (Negative); Anti-NXP-2 (P140) Ab <20 Units (<20); Anti-OJ Ab Negative (Negative); Anti-PL-12 Ab Negative (Negative); Anti-PL-7 Ab Negative (Negative); Anti-PM/Scl-100 Ab <20 Units (<20); Anti-SRP Ab Negative (Negative); Anti-SS-A 52kD Ab, IgG <20 Units (<20); Anti-TIF-1gamma Ab <20 Units (<20); Anti-U1 RNP Ab <20 Units (<20); Anti-U2 RNP Ab Negative (Negative); Anti-U3 RNP (Fibrillarin) Negative (Negative)
== END 2023-04-20 02:24 | disposition home or self-care (01) ==
LOC: LBO 02:23
PROVIDERS: PCP Nurse Practitioner Family; Visit Provider Student in an Organized Health Care Education/Training Program
DX: J84.9 Interstitial pulmonary disease, unspecified (principal)
CPT/HCPCS: 36415; 83516; 86235; 86225

== ENCOUNTER → 2023-05-12 02:46 | Outpatient (CLI) | payer MEDICARE, MEDICAID, SELFPAY ==
--- NOTE | 2023-05-12 | DI.US_ITS ---
APPROVED REPORT EXAM: Comprehensive 2D, Doppler, and color-flow Echocardiogram Patient Location: Out-Patient Sample Patternmaker: Nela Killian RDCS (AE) Indications: Murmur, Pulmonary infiltrate, COPD, Asthma Other Information Study Quality: Adequate Conclusion Normal left ventricular wall thickness and chamber size. Ejection fraction is 58%. Wall motion is n ormal Normal right ventricular size and systolic function Both atria are normal in size Aortic valve is sclerotic and trileaflet with mild regurgitation Mild mitral annular calcification, mild mitral regurgitation Normal tricuspid valve with mild regurgitation. Estimated right ventricular systolic pressure is 28 mmHg Wall motion Left Ventricle The left ventricle is normal size. The left ventricular systolic function is normal. The left ventric ular ejection fraction is within the normal range. There is normal left ventricular wall thickness. T here is normal LV segmental wall motion. There is no ventricular septal defect visualized. LVEF is 58 %. Right Ventricle The right ventricle is normal size. The right ventricular systolic function is normal. Atria The left atrium size is normal. The right atrium size is normal. The interatrial septum is intact wit h no evidence for an atrial septal defect. Aortic Valve The Aortic valve is sclerotic. Aortic valve is trileaflet. No hemodynamically significant valvular ao rtic stenosis. Mild aortic regurgitation. Mitral Valve There is mitral annular calcification. No evidence of mitral valve stenosis. Mild mitral regurgitatio n. Tricuspid Valve The tricuspid valve is normal in structure. There is no tricuspid valve stenosis. Mild tricuspid reg urgitation. The RVSP is 28.2mmHg. Pulmonic Valve The pulmonary valve is normal in structure. There is no pulmonic valvular stenosis. Trace pulmonic re gurgitation. Great Vessels The aortic root is normal in size. The ascending aorta is normal in size. Aortic arch is normal in ca liber. IVC is normal in size and collapses >50% with inspiration. Pericardium There is no pericardial effusion. 2D Dimensions IVSD d PLAX 0.67 cm F: 0.6-1.0 Ao Root d 2.49 cm F: 2.7 - 3.3 LVPW d PLAX 0.71 cm F: 0.6 - 1.0 Ao Asc Diam d 2.94 cm F: 2.3 - 3.1 LVID d PLAX 4.35 cm F: 3.8 - 5.2 LVDs 2.97 cm F: 2.2 - 3.5 LV EF Teichholz 59.8 % FS 31.57 % LV EDV (Teich) 85.2 mL LV ESV (Teich) 34.3 mL M-Mode TAPSE 2.37 cm (M/F) >1.7 Auto EF LV EDV A4C 69.0 mL LV EDV A2C 66.9 mL LV EDV BP 67.7 mL LV ESV A4C 28.6 mL LV ESV A2C 27.0 mL LV ESV BP 28.2 mL LVEF(%) A4C 58.5 % LVEF(%) A2C 59.6 % LVEF(%) BP 58.4 % LV SV A4C 40.4 ml LV SV A2C 39.9 ml LV SV BP 39.5 ml LV CO A4C 2.9 L/min LV CO A2C 2.9 L/min LV CO BP 2.9 L/min HR A4C 73.03 BPM HR A2C 72.85 BPM LV EDV Index (BP) LA Volume LA Length A4C 5.3 cm LA Length A2C 4.9 cm LA Area A4C s 16.95 cm2 LA Area A2C s 14.53 cm2 LA Vol A4C A-L 45.69 mL LA Vol A2C A-L 36.45 mL LA Vol Biplane A-L 42.5 mL LA Vol/BSA A4C A-L LA Vol/BSA A2C A-L LA Vol/BSA BP A-L 27.8 mL/m2 LA Vol A4C MOD 43.5 mL LA Vol A2C MOD 34.8 mL LA Vol BP MOD 40.5 mL RA Volume RA Area A4C 9.8 cm2 RA ESV A4C (A-L) 18.5mL RA Vol/BSA A4C A-L RA Length A4C 4.5 cm RA ESV A4C (MOD) 17.4mL LV Diastology MV E' medial 0.071 (>0.07 m/s) MV E Vmax 1.02 (0.4-1.3 m/s) MV E/E' MED 14.23 (<14) MV A Vmax 0.95 (0.4-1.3 m/s) MV E' lateral 0.067 (>0.1 m/s) E/A Ratio 1.1 MV E/E' LAT 15.25 (<14) MV E' Average 0.069 m/s MV E/E'(average) 14.72 Aortic Valve AoV Vmax 2.00 m/s LVOT Vmax 1.25 m/s AoV Peak Grad 28.8 mmHg LVOT Peak Grad 6.3 mmHg AoV Area (Vmax) 1.80 cm2 LVOT VTI 0.293 m AoV VTI 0.467 m LVOT Mean Grad 3.3 mmHg AoV Mean Rashid. 1.33 m/s LVOT SV 84.21 mL AoV Mean Grad 8.3 mmHg LVOT Diam s 1.90 cm AoV Area (VTI) 1.80 cm2 AV Regurg Peak Gr. 41.80 mmHg Velocity Ratio 0.63 AR Decel Floyd 2.4m/sec2 AR DT 1372 msec AR PHT 398 msec AR Vmax 3.23 m/s Mitral Valve MV DT 236 (160-240 msec) MV Vmax TIPS 1.23 m/s MV Mean Grad 2.4 (<2mmHg) MV VTI 0.265 m Pulmonary Valve PV Vmax 0.97 (0.5-1.5 m/s) RVOT Vmax 0.57 m/s PV Peak Grad 3.7 mmHg RVOT Peak Gr. 1.3 mmHg PV Mean Rashid 0.64 m/s RVOT VTI 0.102 m PV Mean Grad 1.8 mmHg RVOT Mean Gr. 0.8 mmHg Tricuspid Valve RA Pressure 3.00 mmHg TR Vmax 2.51 m/s TV S' 0.13 m/s TR Peak Grad 25.2 mmHg RVSP (TR) 28.2 mmHg
== END ==
PROVIDERS: PCP Nurse Practitioner Family; Visit Provider Nurse Practitioner Family
DX: R01.1 Cardiac murmur, unspecified (principal)
CPT/HCPCS: 93306

== ENCOUNTER → 2023-06-01 09:37 | Outpatient (BNVA) | payer MEDICARE, MEDICAID, SELFPAY | PROVIDERS: PCP Nurse Practitioner Family; Visit Provider Psychiatry & Neurology Neurology | DX: G25.0 Essential tremor (principal); R41.3 Other amnesia; F81.9 Developmental disorder of scholastic skills, unspecified | CPT/HCPCS: 99214 ==

== ENCOUNTER → 2023-06-29 10:55 | Outpatient (BNVA) | payer MEDICARE, MEDICAID, SELFPAY | PROVIDERS: PCP Nurse Practitioner Family; Referring Provider Nurse Practitioner Family; Visit Provider Physician Assistant Surgical | DX: J45.909 Unspecified asthma, uncomplicated (principal); J84.9 Interstitial pulmonary disease, unspecified | CPT/HCPCS: 99214 ==

== ENCOUNTER → 2023-08-11 09:33 | Outpatient (BNVA) | payer MEDICARE, MEDICAID, SELFPAY | PROVIDERS: PCP Nurse Practitioner Family; Referring Provider Nurse Practitioner Family; Visit Provider Psychiatry & Neurology Neurology | DX: G25.0 Essential tremor (principal); F81.9 Developmental disorder of scholastic skills, unspecified; F03.90 Unspecified dementia, unspecified severity, without behavioral disturbance, psychotic disturbance, mood disturbance, and anxiety | CPT/HCPCS: 99213 ==

== ENCOUNTER 2023-08-12 11:28 | Outpatient (REF) | payer MEDICARE, MEDICAID, SELFPAY ==
[2023-08-12 14:06] LABS: Abs Immature Grans 0.07 10^3/uL (0.0-0.06); Absolute Basophil Count 0.08 10^3/uL (0.0-0.2); Absolute Eosinophil Count 0.43 10^3/uL (0.0-0.7); Absolute Lymphocyte Count 0.67 10^3/uL (1.2-3.4); Absolute Monocyte Count 0.86 10^3/uL (0.1-0.8); Absolute Neutrophil Count 6.44 10^3/uL (1.2-6.7); Basophils % 0.9; HCT 33.6 % (36.0-46.0); HGB 10.8 g/dL (11.2-15.7); Immature Grans % 0.8; Lymphocytes % 7.8; MCH 27.3 pg (27.0-33.0); MCHC 32.1 % (32.0-36.0); MCV 85 fL (80-95); MPV 11.6 fL (8.0-11.0); Monocytes % 10.1; Neutrophils % 75.4; Platelet Count 158 10^3/uL (130-400); RBC 3.96 10^6/uL (3.93-5.22); RDW 14.8 % (11.7-14.6); RDW-SD 46.1 fL; WBC 8.55 10^3/uL (4.4-10.8)
[2023-08-12 14:16] LABS: Iron 37 ug/dL (50-170); Total Iron Binding Capacity 296 ug/dL (250-450); Transferrin Sat 13 % (15-50)
[2023-08-12 14:29] LABS: Ferritin 143 ng/mL (8-252)
== END 2023-08-12 11:29 | disposition home or self-care (01) ==
LOC: NCHCN 11:28
PROVIDERS: PCP Nurse Practitioner Family; Visit Provider Nurse Practitioner Family
DX: D64.9 Anemia, unspecified (principal)
CPT/HCPCS: 82728; 83540; 83550; 85025

== ENCOUNTER → 2023-11-10 08:58 | Outpatient (BNVA) | payer MEDICARE, MEDICAID, SELFPAY | PROVIDERS: PCP Nurse Practitioner Family; Referring Provider Nurse Practitioner Family; Visit Provider Psychiatry & Neurology Neurology | DX: G25.0 Essential tremor (principal); F81.9 Developmental disorder of scholastic skills, unspecified; F03.90 Unspecified dementia, unspecified severity, without behavioral disturbance, psychotic disturbance, mood disturbance, and anxiety | CPT/HCPCS: 99213 ==

== ENCOUNTER → 2023-12-09 04:27 | Outpatient (CLI) | payer MEDICARE, MEDICAID, SELFPAY ==
--- NOTE | 2023-12-09 11:13 | DI.MAMMO_ITS ---
Exam(s) MG MAMMO SCREENING 60 MIN DUR EXAM: MG MAMMO SCREENING 60 MIN DUR CLINICAL HISTORY: SCREENING, Z12.31. TECHNIQUE: Bilateral full field digital CC and MLO mammographic images were obtained with 3D tomosyn thesis and utilizing computer aided detection (CAD). COMPARISON: Prior 2022 mammogram was reviewed. FINDINGS: There has been no significant change in the appearance and distribution of the fibroglandular tissue. Benign secretory-type calcifications again noted bilaterally. There are no new spiculated masses nor malignant appearing microcalcification groups. There is no significant architectural distortion nor skin thickening-retraction. IMPRESSION: No radiographic evidence of malignancy. BI-RADS Category 1 - Negative Breast Density - Category A - Almost entirely fatty Breast density Category C or D implies that the patient has dense breast tissue. Dense breast tissue can make it harder to find cancer on a mammogram. Dense breast tissue is also associated with an incr eased risk of breast cancer. This information about the result of the mammogram report was provided to the patient to raise their awareness. Use this report when you speak with the patient about their risks for breast cancer, which includes their family history. At that time, you may recommend additional screening tests (Ultrasoun d or MRI) as these tests may add significant information. A negative radiographic report should not delay biopsy if a dominant or clinically suspicious mass is present. Up to ten percent of cancers are not identified on mammography. A negative report may reinforce clinical impression. Adenosis and dense breasts may obscure an underlying neoplasm. False positive reports average 6 to 10%. Patient will receive a letter notifying them of these results.
== END ==
PROVIDERS: PCP Nurse Practitioner Family; Visit Provider Nurse Practitioner Family
DX: Z12.31 Encounter for screening mammogram for malignant neoplasm of breast (principal)
CPT/HCPCS: 77063; 77067

== ENCOUNTER → 2023-12-28 10:23 | Outpatient (BNVA) | payer MEDICARE, MEDICAID, SELFPAY | PROVIDERS: PCP Nurse Practitioner Family; Referring Provider Nurse Practitioner Family; Visit Provider Student in an Organized Health Care Education/Training Program | DX: J84.9 Interstitial pulmonary disease, unspecified (principal); J45.909 Unspecified asthma, uncomplicated | CPT/HCPCS: 94010; 99214 ==

== ENCOUNTER → 2024-03-08 09:09 | Outpatient (BNVA) | payer MEDICARE, MEDICAID, SELFPAY | PROVIDERS: PCP Nurse Practitioner Family; Visit Provider Psychiatry & Neurology Neurology | DX: G25.0 Essential tremor (principal); F03.90 Unspecified dementia, unspecified severity, without behavioral disturbance, psychotic disturbance, mood disturbance, and anxiety; F81.9 Developmental disorder of scholastic skills, unspecified | CPT/HCPCS: 99213 ==

== ENCOUNTER 2024-03-29 02:44 | Outpatient (CLI) | payer MEDICARE, MEDICAID, SELFPAY ==
[2024-03-29 15:18] LABS: Abs Immature Grans 0.06 10^3/uL (0.0-0.06); Absolute Basophil Count 0.07 10^3/uL (0.0-0.2); Absolute Eosinophil Count 0.59 10^3/uL (0.0-0.7); Absolute Lymphocyte Count 1.39 10^3/uL (1.2-3.4); Absolute Monocyte Count 1.02 10^3/uL (0.1-0.8); Absolute Neutrophil Count 5.88 10^3/uL (1.2-6.7); Basophils % 0.8 %; Eosinophils % 6.5 %; HCT 34.8 % (36.0-46.0); HGB 11.1 g/dL (11.2-15.7); Immature Grans % 0.7 %; Lymphocytes % 15.4 %; MCH 29.4 pg (27.0-33.0); MCHC 31.9 % (32.0-36.0); MCV 92 fL (80-95); MPV 11.2 fL (8.0-11.0); Monocytes % 11.3 %; Neutrophils % 65.3 %; Platelet Count 142 10^3/uL (130-400); RBC 3.77 10^6/uL (3.93-5.22); RDW 13.8 % (11.7-14.6); RDW-SD 46.7 fL; WBC 9.01 10^3/uL (4.4-10.8)
[2024-03-29 16:22] LABS: Iron 64 ug/dL (50-170); Total Iron Binding Capacity 292 ug/dL (250-450); Transferrin Sat 22 % (15-50)
[2024-03-29 16:31] LABS: Ferritin 103 ng/mL (8-252)
[2024-03-31 09:02] LABS: Transferrin 217 mg/dL (201-352)
== END 2024-03-29 02:45 | disposition home or self-care (01) ==
LOC: LBO 02:44
PROVIDERS: PCP Nurse Practitioner Family; Visit Provider Nurse Practitioner Family
DX: D64.9 Anemia, unspecified (principal)
CPT/HCPCS: 36415; 82728; 83540; 83550; 84466; 85025

== ENCOUNTER 2024-04-06 17:27 | Outpatient (REF) | payer MEDICARE, MEDICAID, SELFPAY ==
[2024-04-06 14:38] LABS: Hemoglobin A1C 5.7 % (<5.7)
== END 2024-04-06 17:28 | disposition home or self-care (01) ==
LOC: NCHCN 17:27
PROVIDERS: PCP Nurse Practitioner Family; Visit Provider Nurse Practitioner Family
DX: E66.9 Obesity, unspecified (principal)
CPT/HCPCS: 83036

== ENCOUNTER 2024-04-10 03:33 | Outpatient (CLI) | payer MEDICARE, MEDICAID, SELFPAY ==
--- NOTE | 2024-04-10 | DI.DEXA_ITS ---
Exam(s) XR DEXA BONE DENSITY W/WO CLIVE EXAM: XR DEXA BONE DENSITY W/WO CLIVE CLINICAL HISTORY: Age-related osteoporosis wo current pathological fx, M81.0 TECHNIQUE: Routine DEXA evaluation of the lumbar spine, hip, or forearm. COMPARISON: CR XR DEXA BONE DENSITY W/WO CLIVE from 09/03/2022 FINDINGS: Performed on a Hologic unit. Lateral image: No compression fracture evident. Lumbar Spine total T-score: 1.1. Prior reading August 2022 was 0.9 Hip total T-score:-1.4. Prior reading August 2022 was -1.5 Independent reading at the level of the femoral neck yields T-score of -2.2 Forearm total T-score: -1.7 IMPRESSION: Bone mineral density measures in the osteopenia range. Fracture risk is moderate. Note: Any spine fracture indicates 5x risk for subsequent spine fracture and 2x risk for subsequent h ip fracture. World Health Organization criteria for BMD interpretation classify patients: Normal...... T- Score at or above -1.0 Osteopenic... T- Score between -1.0 and -2.5 Osteoporosis... T-Score at or below -2.5
== END 2024-04-10 03:53 ==
LOC: DI 03:33
PROVIDERS: PCP Nurse Practitioner Family; Visit Provider Nurse Practitioner Family
DX: M81.0 Age-related osteoporosis without current pathological fracture (principal); Z13.820 Encounter for screening for osteoporosis
CPT/HCPCS: 77080

== ENCOUNTER 2024-05-01 10:07 | Outpatient (REF) | payer MEDICARE, MEDICAID, SELFPAY | END 2024-05-01 10:08 | disposition home or self-care (01) | LOC: NCHCN 10:07 | PROVIDERS: PCP Nurse Practitioner Family; Visit Provider Family Medicine | DX: R46.89 Other symptoms and signs involving appearance and behavior (principal) | CPT/HCPCS: 87086 ==

== ENCOUNTER → 2024-06-26 10:21 | Outpatient (BNVA) | payer MEDICARE, MEDICAID, SELFPAY | PROVIDERS: PCP Nurse Practitioner Family; Referring Provider Nurse Practitioner Family; Visit Provider Physician Assistant Surgical | DX: J84.9 Interstitial pulmonary disease, unspecified (principal); J45.909 Unspecified asthma, uncomplicated | CPT/HCPCS: 99214 ==

== ENCOUNTER 2024-06-30 02:07 | Outpatient (CLI) | payer MEDICARE, MEDICAID, SELFPAY ==
[2024-06-30] MEDS: Levalbuterol HFA 15 GM INH 4 PUFF IH (11:03)
[2024-06-30] MEDS: Inhaler, Assist Device 1 EACH MC (11:03)
--- NOTE | 2024-07-08 11:47 | W.PFT ---
Date of service: 06/30/24 Time of Service: 10:02 Pulmonary Function Test Result Indications: ILD Interpretation Spirometry: There is no airflow limitation. No bronchodilator response. Lung Volumes: Normal lung volumes Diffusion Capacity: Normal diffusion Airway Pressure: Normal airways resistance Impression Normal pulmonary function testing Clinical Correlation therefore is recommended.
== END 2024-06-30 02:08 | disposition home or self-care (01) ==
LOC: RT 02:08
PROVIDERS: PCP Nurse Practitioner Family; Visit Provider Physician Assistant Surgical
DX: J84.9 Interstitial pulmonary disease, unspecified (principal)
CPT/HCPCS: 94060; 94726; 94729

== ENCOUNTER 2024-08-04 20:13 | Outpatient (REF) | payer MEDICARE, MEDICAID, SELFPAY ==
[2024-08-04 14:04] LABS: Bilirubin Negative (Negative); Blood Negative (Negative); Clarity Clear (Clear); Glucose Negative (Negative); Ketones Negative (Negative); Leukocyte Esterase Moderate (Negative); Nitrite Negative (Negative); Urobilinogen 0.2 mg/dL (Up to 0.2)
[2024-08-04 14:14] LABS: Bacteria Few HPF (Negative); C & S Indicated? No/Sq. Contamination; Casts Negative LPF (Negative); Crystals Negative HPF (Negative); Epithelial Cells Moderate HPF (Negative); Mucus Negative (Negative); RBC 0-2 HPF (0-2)
== END 2024-08-04 20:14 | disposition home or self-care (01) ==
LOC: NCHCN 20:13
PROVIDERS: PCP Nurse Practitioner Family; Visit Provider Nurse Practitioner Family
DX: R32 Unspecified urinary incontinence (principal); R82.89 Other abnormal findings on cytological and histological examination of urine
CPT/HCPCS: 81003; 81015

== ENCOUNTER → 2024-09-06 10:13 | Outpatient (BNVA) | payer MEDICARE, MEDICAID, SELFPAY | PROVIDERS: PCP Nurse Practitioner Family; Referring Provider Nurse Practitioner Family; Visit Provider Psychiatry & Neurology Neurology | DX: G25.0 Essential tremor (principal); F03.90 Unspecified dementia, unspecified severity, without behavioral disturbance, psychotic disturbance, mood disturbance, and anxiety | CPT/HCPCS: 99214 ==

== ENCOUNTER 2024-09-07 02:45 | Outpatient (CLI) | payer MEDICARE, MEDICAID, SELFPAY ==
--- NOTE | 2024-09-07 | DI.DEXA_ITS ---
Exam(s) XR DEXA BONE DENSITY W/WO CLIVE EXAM: XR DEXA BONE DENSITY W/WO CLIVE CLINICAL HISTORY: SENILE OSTEOPOROSIS, M81.0, AGE RELATED OSTEOPOROSIS W/O CURRENT TECHNIQUE: Routine DEXA evaluation of the lumbar spine, hip, or forearm. COMPARISON: CR XR DEXA BONE DENSITY W/WO CLIVE from 04/10/2024. FINDINGS: Performed on a [employer] unit. Lateral image: No compression fracture evident. Lumbar Spine total T-score: 0.0. Prior reading in March 2024 was 1.2 Hip total T-score:-1.5. Prior reading in 2023 was -1.4 Independent reading at the level of the femoral neck yields T-score of -2.4 Forearm total T-score: -1.6. Prior reading in March 2024 was -1.7 IMPRESSION: Bone mineral density measures in the osteopenia range. Fracture risk is moderate. Note: Any spine fracture indicates 5x risk for subsequent spine fracture and 2x risk for subsequent h ip fracture. World Health Organization criteria for BMD interpretation classify patients: Normal...... T- Score at or above -1.0 Osteopenic... T- Score between -1.0 and -2.5 Osteoporosis... T-Score at or below -2.5
== END 2024-09-07 03:05 ==
LOC: DI 02:45
PROVIDERS: PCP Nurse Practitioner Family; Visit Provider Nurse Practitioner Family
DX: M81.0 Age-related osteoporosis without current pathological fracture (principal)
CPT/HCPCS: 77080

== ENCOUNTER → 2024-12-06 10:28 | Outpatient (BNVA) | payer MEDICARE, MEDICAID, SELFPAY | PROVIDERS: PCP Nurse Practitioner Family; Referring Provider Nurse Practitioner Family; Visit Provider Psychiatry & Neurology Neurology | DX: G25.0 Essential tremor (principal); F81.9 Developmental disorder of scholastic skills, unspecified; F03.90 Unspecified dementia, unspecified severity, without behavioral disturbance, psychotic disturbance, mood disturbance, and anxiety | CPT/HCPCS: 99214 ==

== ENCOUNTER → 2024-12-25 10:44 | Outpatient (BNVA) | payer MEDICARE, MEDICAID, SELFPAY | PROVIDERS: PCP Nurse Practitioner Family; Referring Provider Nurse Practitioner Family; Visit Provider Physician Assistant Surgical | DX: J84.9 Interstitial pulmonary disease, unspecified (principal); J45.909 Unspecified asthma, uncomplicated | CPT/HCPCS: 99214 ==

== ENCOUNTER 2025-01-05 01:57 | Outpatient (CLI) | payer MEDICARE, MEDICAID, SELFPAY ==
[2025-01-05] MEDS: Inhaler, Assist Device 1 EACH MC (11:22)
[2025-01-05] MEDS: Levalbuterol HFA 15 GM INH 4 PUFF IH (11:23)
--- NOTE | 2025-01-14 14:51 | W.PFT ---
Date of service: 01/05/25 Time of Service: 10:05 Pulmonary Function Test Result Indications: ILD Interpretation Spirometry: There is restrictive spirometry. Significant bronchodilator response. Lung Volumes: Mild restrictive lung disease Diffusion Capacity: Reduced diffusion Airway Pressure: Normal airways resistance Impression Mild restrictive lung disease with a reduced diffusion Clinical Correlation therefore is recommended.
== END 2025-01-05 01:58 | disposition home or self-care (01) ==
LOC: RT 01:57
PROVIDERS: PCP Nurse Practitioner Family; Visit Provider Student in an Organized Health Care Education/Training Program
DX: J84.9 Interstitial pulmonary disease, unspecified (principal); J45.909 Unspecified asthma, uncomplicated
CPT/HCPCS: 94060; 94726; 94729

== ENCOUNTER 2025-02-09 10:35 | Outpatient (CLI) | payer MEDICARE, MEDICAID, SELFPAY ==
[2025-02-09 11:22] LABS: Hemoglobin A1C 5.6 % (<5.7)
[2025-02-09 12:14] LABS: ALT 22 U/L (14-59); AST 18 U/L (15-37); Albumin 3.5 g/dL (3.4-5.0); Alkaline Phosphatase 122 U/L (46-116); Anion Gap 12.5 mmol/L (3-11); BUN 24 mg/dL (7-18); Bilirubin, Total 0.3 mg/dL (0.2-1.0); CO2 22.5 mmol/L (21.0-32.0); Calcium 8.9 mg/dL (8.5-10.1); Chloride 105 mmol/L (98-107); Estimated GFR 58.39 (mL/min/1.73m2); Glucose 95 mg/dL (74-106); Potassium 4.5 mmol/L (3.5-5.1); Sodium 140 mmol/L (136-145); Total Protein 7.8 g/dL (6.4-8.2)
== END 2025-02-09 10:36 | disposition home or self-care (01) ==
LOC: LBO 10:36
PROVIDERS: PCP Nurse Practitioner Family; Visit Provider Nurse Practitioner Family
DX: E66.9 Obesity, unspecified (principal)
CPT/HCPCS: 36415; 80053; 83036

== ENCOUNTER → 2025-03-07 10:43 | Outpatient (BNVA) | payer MEDICARE, MEDICAID, SELFPAY | PROVIDERS: PCP Nurse Practitioner Family; Visit Provider Psychiatry & Neurology Neurology | DX: G25.0 Essential tremor (principal); F81.9 Developmental disorder of scholastic skills, unspecified; F03.90 Unspecified dementia, unspecified severity, without behavioral disturbance, psychotic disturbance, mood disturbance, and anxiety; J44.9 Chronic obstructive pulmonary disease, unspecified | CPT/HCPCS: 99214 ==

== ENCOUNTER 2025-03-23 17:50 | Outpatient (REF) | payer MEDICARE, MEDICAID, SELFPAY | END 2025-03-23 17:51 | disposition home or self-care (01) | LOC: NCHCN 17:50 | PROVIDERS: PCP Nurse Practitioner Family; Visit Provider Nurse Practitioner Family | DX: R46.89 Other symptoms and signs involving appearance and behavior (principal); R82.89 Other abnormal findings on cytological and histological examination of urine | CPT/HCPCS: 87086 ==

== ENCOUNTER 2025-03-29 15:26 | Outpatient (REF) | payer MEDICARE, MEDICAID, SELFPAY ==
[2025-03-29 16:03] LABS: HCT 33.3 % (36.0-46.0); HGB 10.9 g/dL (11.2-15.7); MCH 30.4 pg (27.0-33.0); MCHC 32.7 % (32.0-36.0); MCV 93 fL (80-95); MPV 11.4 fL (8.0-11.0); RBC 3.59 10^6/uL (3.93-5.22); RDW 13.3 % (11.7-14.6); RDW-SD 45.6 fL; WBC 11.35 10^3/uL (4.4-10.8)
[2025-03-29 16:17] LABS: Iron 67 ug/dL (50-170); Total Iron Binding Capacity 237 ug/dL (250-450); Transferrin Sat 28 % (15-50)
[2025-03-29 16:26] LABS: ALT 48 U/L (14-59); AST 29 U/L (15-37); Albumin 3.0 g/dL (3.4-5.0); Alkaline Phosphatase 154 U/L (46-116); Anion Gap 8.9 mmol/L (3-11); BUN 14 mg/dL (7-18); Bilirubin, Total 0.3 mg/dL (0.2-1.0); CO2 27.1 mmol/L (21.0-32.0); Calcium 8.8 mg/dL (8.5-10.1); Chloride 103 mmol/L (98-107); Estimated GFR 75.84 (mL/min/1.73m2); Ferritin 468 ng/mL (8-252); Glucose 80 mg/dL (74-106); Potassium 5.1 mmol/L (3.5-5.1); Sodium 139 mmol/L (136-145); TSH (W/Ref FT4) 2.78 uIU/mL (0.36-3.74); Total Protein 7.0 g/dL (6.4-8.2)
[2025-03-29 16:49] LABS: Platelet Count 226 10^3/uL (130-400); RBC Morphology Normal
== END 2025-03-29 15:27 | disposition home or self-care (01) ==
LOC: NCHCN 15:26
PROVIDERS: PCP Nurse Practitioner Family; Visit Provider Nurse Practitioner Family
DX: R46.89 Other symptoms and signs involving appearance and behavior (principal)
CPT/HCPCS: 80053; 82728; 83540; 83550; 84443; 85025

== ENCOUNTER → 2025-05-16 09:13 | Outpatient (BNVA) | payer MEDICARE, MEDICAID, SELFPAY | PROVIDERS: PCP Nurse Practitioner Family; Referring Provider Nurse Practitioner Family; Visit Provider Psychiatry & Neurology Neurology | DX: G25.0 Essential tremor (principal); F81.9 Developmental disorder of scholastic skills, unspecified; F03.90 Unspecified dementia, unspecified severity, without behavioral disturbance, psychotic disturbance, mood disturbance, and anxiety; J44.9 Chronic obstructive pulmonary disease, unspecified | CPT/HCPCS: 99214 ==

== ENCOUNTER 2025-05-28 19:26 | Outpatient (REF) | payer MEDICARE, MEDICAID, SELFPAY ==
[2025-05-28 20:05] LABS: Glucose Negative (Negative)
[2025-05-28 20:15] LABS: RBC 0-2 HPF (0-2)
== END 2025-05-28 19:27 | disposition home or self-care (01) ==
LOC: NCHCN 19:26
PROVIDERS: PCP Nurse Practitioner Family; Visit Provider Nurse Practitioner Family
DX: R32 Unspecified urinary incontinence (principal)
CPT/HCPCS: 81003; 81015

== ENCOUNTER → 2025-06-25 10:05 | Outpatient (BNVA) | payer MEDICARE, MEDICAID, SELFPAY | PROVIDERS: PCP Nurse Practitioner Family; Referring Provider Nurse Practitioner Family; Visit Provider Physician Assistant Surgical | DX: J45.909 Unspecified asthma, uncomplicated (principal); J84.9 Interstitial pulmonary disease, unspecified | CPT/HCPCS: 99214; 94640 ==

== ENCOUNTER → 2025-07-10 00:38 | Outpatient (CLI) | payer MEDICARE, MEDICAID, SELFPAY ==
--- NOTE | 2025-07-10 08:47 | DI.CT_ITS ---
Exam(s) CT CHEST HIGH RESOLUTION EXAM: CT CHEST HIGH RESOLUTION CLINICAL HISTORY: cough, assess for progression,INTERSTITAL LUNG DISEASE,J84.9. TECHNIQUE: Imaging protocol: Axial computed tomography images were obtained and coronal and sagittal reformatted images were created and reviewed. Lung Computer Aided Detection (CAD) was utilized. COMPARISON: CT CT CHEST HIGH RESOLUTION from 04/05/2023 FINDINGS: The examination is limited due to patient motion artifact. Tracheobronchial tree: Patent where visualized. No bronchiectasis is present. Pulmonary parenchyma: No consolidation or dominant measurable mass. There again seen symmetric interstitial markings in the lungs. The have a similar appearance compared to the prior examination from 04/05/2023. There does not appear to be any significant progression of disease. There are no focal co nsolidating infiltrates. There are few scattered pulmonary nodules. The largest measuring 3 mm. Mediastinum and Rajwinder: No dominant adenopathy or fluid collection. The esophagus is unremarkable. Thyroid gland: Unremarkable. Pleura: No effusion or pneumothorax. There are now pleural calcification seen on the right. Heart: The heart is not dilated. Coronary artery calcifications are present. No pericardial effusion. Aorta: Thoracic aorta non-dilated. Atherosclerotic calcification is present. Upper abdomen: Unremarkable. Lymph nodes: Within normal limits. Soft tissues: Unremarkable. Bones:Within normal limits for the patient's age. [facility] is noted in the thoracic spine. IMPRESSION: 1. There has been no significant progression of the interstitial disease since 04/05/2023. 2. There is no acute pulmonary process. RADIATION DOSE DELIVERED: 399.68mGy.cm Total DLP 399.68mGy.cm Total DLP DATA REPOSITORY: All CT scans at this facility are submitted to the National Radiology Data Registry (NRDR) Dose Index Registry (DIR) with the [employer] (A[employer]). RADIATION OPTIMIZATION: All CT scans at this facility use at least one of these dose optimization techniques: automated exposure control; mA and/or kV adjustment per patient size (includes targeted exams where dose is matched to clinical indication); or iterative reconstruction.
== END ==
PROVIDERS: PCP Nurse Practitioner Family; Visit Provider Physician Assistant Surgical
DX: J84.9 Interstitial pulmonary disease, unspecified (principal)
CPT/HCPCS: 71250

== ENCOUNTER 2025-07-22 12:46 | Emergency (ER) | payer MEDICARE, MEDICAID, SELFPAY ==
[2025-07-22 13:11] VITALS: BP 109/65; PULSE 83; RESP 18; TEMP 36.3; O2SAT 95
[2025-07-22 13:16] VITALS: BP 109/65; PULSE 83; RESP 24; TEMP 36.3; O2SAT 95
--- NOTE | 2025-07-22 13:25 | W.ED.GENAD ---
Discharge Plan Disposition Patient Disposition: Home Discharge Details Clinical Impression: Reactive airway disease with acute exacerbation Primary Care Provider: Misti Javier ED Provider: Shorty Chan Home Meds and New Rx's Prescriptions: New doxycycline hyclate 100 mg capsule 100 mg PO BID Qty: 10 0RF benzonatate 100 mg capsule 100 mg PO BID PRNQty: 7 0RF prednisone 50 mg tablet 50 mg PO DAILY Qty: 4 0RF Rx Instructions: Please begin taking tomorrow as you have received steroids in the emergency department Continued melatonin 10 mg capsule 5 mg PO HS docusate sodium 100 mg capsule 100 mg PO BID budesonide-formoterol [Breyna] 160-4.5 mcg/actuation HFA aerosol inhaler 2 puff inhalation BID loratadine 10 mg tablet 10 mg PO DAILY doxycycline hyclate 100 mg capsule 100 mg PO BID Qty: 10 0RF prednisone 20 mg tablet 40 mg PO DAILY Qty: 10 0RF Rx Instructions: Take 2 tablets once a day for 5 days. levalbuterol HCl 0.63 mg/3 mL solution for nebulization 0.63 mg inhalation Q6H PRN (Reason: shortness of breath or wheezing) Qty: 90 6RF primidone 50 mg tablet See Rx Instructions PO QHS Qty: 7 0RF Rx Instructions: 50mg HS x 1 week, then stop orally every day at bedtime; sertraline 100 mg tablet 100 mg PO DAILY multivitamin Tablet 1 tab PO DAILY montelukast 10 mg tablet 10 mg PO DAILY ferrous sulfate 325 mg (65 mg iron) tablet 325 mg PO Q OTHER DAY donepezil [Aricept] 10 mg tablet 10 mg PO DAILY cholecalciferol (vitamin D3) 25 mcg (1,000 unit) capsule 25 mcg PO DAILY albuterol sulfate 90 mcg/actuation HFA aerosol inhaler 2 puff inhalation Q4H PRN sertraline 50 mg tablet 50 mg PO DAILY (DME) Aerochamber Plus Flow-Vu Spacer See Rx Instructions .Route Rx Instructions: As directed memantine 10 mg tablet 10 mg PO BID Qty: 180 3RF clonazepam 0.25 mg tablet,disintegrating 0.25 mg PO QHS Qty: 30 3RF ascorbic acid (vitamin C) 250 mg Tablet See Rx Instructions .ROUTE .COMPLEX Rx Instructions: 250 mg orally M// Discharge Instructions Additional Instructions: You were seen in the emergency department for your shortness of breath. Your x-ray showed no sign of pneumonia. You were receiving treatment for an exacerbation of your reactive airway disease. Please begin taking prednisone at doxycycline tomorrow. You will receive a call if your flu, COVID, or influenza swabs are positive. Otherwise if you do not hear from us no news is good news. Please follow-up as needed primary care provider. Please return to the emergency department if you have any other concerns. Stand Alone Forms: Portal Information Discharge Data Discharge Date/Time-TO BE ENTERED AT DEPARTURE: 07/22/25 16:02 HPI General Date/Time Provider Initiated Documentation: 07/22/25 13:23. HPI Narrative: MDM This is a chronically ill-appearing afebrile and nontachycardic DNI DNR palliative care 75-year-old with no acute cardiopulmonary process on chest x-ray for which patient will receive treatment for acute exacerbation of reactive airway disease with doxycycline and prednisone. I spoke multiple times with patient's guardian Paula Ace concerning patient's care in the emergency department. I advised that in the setting of her reassuring x-ray I would like to obtain a more sensitive test with a CT scan. Patient's guardian declined. Patient received nebulized albuterol/ipratropium in the emergency department along with first dose of antibiotics and prednisone. Patient's guardian reported that [facility] would be preferable for additional prescriptions. I also reported that I wanted to obtain lab work and [id number] ultrasound. This was reportedly not in line with the patient's wishes. Patient appeared hydrated so no indication for IV fluids. Patient her guardian and I discussed that she should be returned if she was unable to manage her symptoms at home. Guardian was appreciative and reported that the patient would not want hospitalization would not want IV insertion. Patient was discharged with empiric trial of expectant outpatient management. HPI This is a palliative care patient presenting with increased shortness of breath. The patient reports no history of asthma or COPD. She has been using an inhaler and received nebulizer treatment this morning, but these interventions did not alleviate her symptoms. She has not had any fevers, with her temperature recorded at 95 degrees Fahrenheit. She has a decreased appetite and has been consuming more liquid-based foods, such as smoothies and muffins. The patient resides at [place] [facility]. She has expressed a preference for comfort measures only and does not wish to be hospitalized overnight. Her guardian is Kristel, whose contact information is available. Exam General: Elderly-appearing in no acute distress speaking in complete sentences. Wrapped under a blanket. Head: Normocephalic, atraumatic. Eye: Extraocular eye movements intact. No conjunctival injection. No scleral icterus. Ear, nose, mouth, throat: Grossly normal inspection. Normal voice, handling secretions normally. Moist mucous membranes. Neck: Trachea midline. Cardiovascular: Well-perfused distal extremities. Respiratory: Nonlabored respiration. Decreased breath sounds bilateral with bases. No significant wheezes. Gastrointestinal: Nondistended abdomen. Musculoskeletal: No edema. Moving all 4 extremities spontaneously. Skin: Normal for age and race, grossly normal temperature and turgor. No acute rash. Neurologic: Alert to person but not place nor time. Related Data Home Medications ?Medication ?Instructions ?Recorded ?Confirmed albuterol sulfate 90 mcg/actuation 2 puff inhalation Q4H PRN 07/21/22 07/22/25 aerosol inhaler cholecalciferol (vitamin D3) 25 25 mcg PO DAILY 07/21/22 07/22/25 mcg (1,000 unit) capsule donepezil 10 mg tablet (Aricept) 10 mg PO DAILY 07/21/22 07/22/25 ferrous sulfate 325 mg (65 mg 325 mg PO Q OTHER DAY 07/21/22 07/22/25 iron) tablet montelukast 10 mg tablet 10 mg PO DAILY 07/21/22 07/22/25 multivitamin 1 tab PO DAILY 07/21/22 07/22/25 sertraline 100 mg tablet 100 mg PO DAILY 07/21/22 07/22/25 ascorbic acid (vitamin C) 250 mg See Rx Instructions .Route .COMPLEX 03/16/23 07/22/25 tablet docusate sodium 100 mg capsule 100 mg PO BID 06/29/23 07/22/25 sertraline 50 mg tablet 50 mg PO DAILY 03/08/24 07/22/25 inhalational spacing device 05/01/24 07/22/25 (Aerochamber Plus Flow-Vu) budesonide-formoterol HFA 160 2 puff inhalation BID 12/06/24 07/22/25 mcg-4.5 mcg/actuation aerosol inhaler (Breyna) memantine 10 mg tablet 10 mg PO BID #180 tabs 12/19/24 07/22/25 primidone 50 mg tablet See Rx Instructions PO QHS #7 tabs 05/22/25 06/25/25 clonazepam 0.25 mg disintegrating 0.25 mg PO QHS #30 tabs 05/31/25 07/22/25 tablet doxycycline hyclate 100 mg capsule 100 mg PO BID #10 caps 06/25/25 07/22/25 loratadine 10 mg tablet 10 mg PO DAILY 06/25/25 07/22/25 melatonin 10 mg capsule 5 mg PO HS 06/25/25 07/22/25 prednisone 20 mg tablet 40 mg (2 x 20 mg) PO DAILY #10 tabs 06/25/25 07/22/25 levalbuterol HCl 0.63 mg/3 mL 0.63 mg (3 mL) inhalation Q6H PRN 06/26/25 07/22/25 solution for nebulization shortness of breath or wheezing #90 mL benzonatate 100 mg capsule 100 mg PO BID PRN #7 caps 07/22/25 doxycycline hyclate 100 mg capsule 100 mg PO BID #10 caps 07/22/25 prednisone 50 mg tablet 50 mg PO DAILY #4 tabs 07/22/25 Previous Rx's ?Medication ?Instructions ?Recorded memantine 10 mg tablet 10 mg PO BID #180 tabs 12/19/24 primidone 50 mg tablet See Rx Instructions PO QHS #7 tabs 05/22/25 clonazepam 0.25 mg disintegrating 0.25 mg PO QHS #30 tabs 05/31/25 tablet doxycycline hyclate 100 mg capsule 100 mg PO BID #10 caps 06/25/25 prednisone 20 mg tablet 40 mg (2 x 20 mg) PO DAILY #10 tabs 06/25/25 levalbuterol HCl 0.63 mg/3 mL 0.63 mg (3 mL) inhalation Q6H PRN 06/26/25 solution for nebulization shortness of breath or wheezing #90 mL benzonatate 100 mg capsule 100 mg PO BID PRN #7 caps 07/22/25 doxycycline hyclate 100 mg capsule 100 mg PO BID #10 caps 07/22/25 prednisone 50 mg tablet 50 mg PO DAILY #4 tabs 07/22/25 Allergies Allergy/AdvReac Type Severity Reaction Status Date / Time cephalexin Allergy Severe sob Verified 07/22/25 13:17 tetanus toxoid, adsorbed Allergy Severe Other (See Verified 07/22/25 13:17 Comment) diclofenac Allergy Intermediate Other (See Verified 07/22/25 13:17 Comment) shellfish derived Allergy Intermediate Other (See Verified 07/22/25 13:17 Comment) Sulfa (Sulfonamide Allergy Intermediate Other (See Verified 07/22/25 13:17 Antibiotics) Comment) acetaminophen Allergy Mild Other (See Verified 07/22/25 13:17 Comment) adhesive tape Allergy Mild Other (See Verified 07/22/25 13:17 Comment) sulfasalazine Allergy Unknown Unknown Verified 06/25/25 10:12 General Stated Complaint: RespSymp FREDA: 3 Course Vital Signs Vital signs: Vital Signs Temperature 36.3 C L 07/22/25 13:11 Pulse 83 07/22/25 13:11 Respiratory Rate 18 07/22/25 13:11 Blood Pressure 109/65 07/22/25 13:11 Pulse Oximetry 95 07/22/25 13:11 Temperature 36.3 C L 07/22/25 13:16 Temperature Source Oral 07/22/25 13:16 Pulse 83 07/22/25 13:16 Respiratory Rate 24 07/22/25 13:16 Blood Pressure 109/65 07/22/25 13:16 Blood Pressure Position Sitting 07/22/25 13:16 Pulse Oximetry 95 07/22/25 13:16 Oxygen Delivery Method Room Air 07/22/25 13:16 Oxygen Flow Rate 0 07/22/25 13:11 Pain Level 0 07/22/25 13:11 PFSH All Active Problems (Updated 07/22/25 @ 15:20 by Shorty Chan MD) Reactive airway disease with acute exacerbation (Acute) Palliative care status (Acute) ACP (advance care planning) (Acute) Impaired instrumental activities of daily living (Acute) Deficit in activities of daily living (ADL) (Acute) Normal colonoscopy (Acute ~03/16/23) Interstitial lung disease (Acute) Asthma, chronic (Acute) Dementia (Chronic) Cognitive developmental delay (Acute) Essential tremor (Acute) Cervical stenosis of spine (Acute) Murmur (Acute) Hyperlipidemia (Chronic) Low back pain (Acute) Knee pain, bilateral (Acute) Thrombocytopenia (Chronic) prior ITP GERD (gastroesophageal reflux disease) (Chronic) Osteoporosis (Chronic) Memory deficit (Chronic) Tremor (Acute) Anemia (Chronic) Urinary incontinence (Chronic) Screening for colon cancer (Acute) Medical History Personal history of other diseases of the digestive system Encounter for immunization Lung field abnormal Disorder of psychological development Chronic obstructive pulmonary disease Monoclonal gammopathy Obesity Recurrent falls Memory loss Hx of pancreatitis Sciatica Anxiety MSSA bacteremia Surgical History History of colonoscopy (~02/2023) S/P emergency Family History Brother Gall bladder disease Drug overdose Heart disease Daughter Stillborn, abnormal Social History Smoking/Tobacco Use Status: Never Smoking risk assessment performed?: Yes Alcohol Intake: never Drug use: Never Substance use type: does not use Housing: house Do you feel safe at home: Yes Do you feel safe in your relationship?: Yes Additional Social history: pt lives in nursing home where she is cared for by caregivers., dementia at baseline.
[2025-07-22 14:04] VITALS: PULSE 92; RESP 22; O2SAT 91
[2025-07-22] MEDS: Albuterol/Ipratropium 3 ML UPD VIAL UPD (14:04)
--- NOTE | 2025-07-22 14:15 | DI.RAD_ITS ---
Exam(s) XR CHEST 2V PA LATERAL EXAM: XR CHEST 2V PA LATERAL CLINICAL HISTORY: cough sob. TECHNIQUE: 2D digital imaging was performed. COMPARISON: CR XR CHEST 2V PA LATERAL from 02/10/2023 FINDINGS: 2 views: Mild cardiomegaly again noted. Mediastinum widened. There is chronic bilateral interstitial, seen on chest studies. There are no obvious new infiltrates. No pleural IMPRESSION: Chronic previously documented interstitial disease. No obvious infiltrates. DATA REPOSITORY: RADIATION DOSE DELIVERED:
[2025-07-22 15:28] LABS: COVID-19 PCR Negative (Negative); RSV PCR Negative (Negative)
[2025-07-22 15:47] VITALS: BP 129/52; PULSE 92; TEMP 36.4; O2SAT 94
[2025-07-22] MEDS: predniSONE 20 MG TAB 60 MG PO (16:01)
[2025-07-22] MEDS: Doxycycline Hyclate 100 MG CAP PO (16:01)
== END 2025-07-22 16:02 | disposition home or self-care (01) ==
PROVIDERS: Emergency Provider Emergency Medicine; PCP Nurse Practitioner Family
DX: J45.901 Unspecified asthma with (acute) exacerbation (principal)
CPT/HCPCS: 99284 ×2; 94640; 87637; 71046; J7512; J7620